=== PATIENT | male | born 1945 | race Caucasian/White ===

== ENCOUNTER 2023-11-26 12:39 | Inpatient (IN) | payer MEDICARE, OTHER, SELFPAY ==
[2023-11-26] VITALS (14 sets, daily range): BP systolic 116–159; BP diastolic 76–116; BMI 29.9
--- NOTE | 2023-11-26 10:46 | W.PN.CARDCBS ---
Today's Communication / Plan
-
LHC today MV CAD
consult CT surgery for CABG eval
trend troponin to peak
Echo
Impression / Plan
-
This is a summary, see scanned H&P
Primary care physician: Alpesh Sam DO
Primary stenotype machine operator: Parrish Diaz MD
78-year-old man with history of hypertension, hyperlipidemia, hiatal hernia, GERD, who presented to the ED with approximately 10 days of progressively worsening chest tightness.
Chest pain description was fairly atypical since it was non-exertional and worse with laying flat. However EKG showed new lateral T wave inversions compared to old prior EKG. Troponin on arrival was minimally elevated to 63, however overnight
progressively drew to 149. EKG this AM showed dynamic changes with deeper lateral T wave inversions and prolonged QTc. He is transferred today for [facility].
Impression:
unstable angina/NSTEMI
HTN
Hyperlipidemia
GERD/hiatal hernia
Cataracts
Depression
Plan:
Admit IVU post LHC with MV CAD
CT surgery consultation
serial troponin to peak
Check ECHO
continue ASA, losartan
high intensity statin
new start to metoprolol
Resume Heparin drip 4 hours post Rad band
continue to monitor on tele
Progress Note - Topology Teacher
Subjective
Date of Service: November 26, 2023
no cp, sob
Physical Exam
Physical Exam
NAD, AOX3
S1, S2, RRR
CTAB, non labored, no wheeze
SNTND Bsx4
No LE edema
[2023-11-26 12:16] LABS: ACT-LR - POC 274 Seconds (116-155)
[2023-11-26] MEDS: NSS 1000 IV (12:25)
--- NOTE | 2023-11-26 12:39 | ITS.CL.CATH ---
[facility] - Catheterization
Cardiac Catheterization
Procedure Report:
LEFT HEART CATHETERIZATION
Date of Procedure: 11/26/2023
Procedures performed:
1: Coronary angiography
2: Left ventriculography
Primary Care Physician: Dr. Alpesh Sam
Primary Revenue Collector: Dr. Parrish Diaz
INDICATION: The patient is a 78-year-old man who presents with crescendo angina and ruled in for non-ST elevation PA. Transferred for urgent cardiac catheterization. Chest pain-free since yesterday. Given aspirin and unfractionated heparin only.
ACCESS: The patient was prepped and draped in usual sterile fashion. A 6 Nepalese sheath was placed in the right radial artery using the Seldinger over the wire technique.
HEMODYNAMIC FINDINGS (mmHg):
LV(s/d,EDP): 129/6, 10
Ao(s/d,m): 129/72, 96
ANGIOGRAPHIC FINDINGS:
Single-plane Left Ventriculography in EVANS Projection: Anteroapical focal severe hypokinesis. Apical hypokinesis. Anterolateral moderate hypokinesis. Overall mild LV systolic dysfunction with an ejection fraction visually estimated at 45 to 50%.
No significant mitral regurgitation.
Coronary Angiography:
Dominance: Right
Left Main: Large caliber with diffuse moderate luminal irregularity with areas of 50% stenotic disease.
Left Anterior Descending: The left anterior descending artery is heavily calcified proximally. There is a long 80 to 90% proximal stenosis. The distal vessel fills via right to left collaterals and is a reasonable surgical target. There are 2
relatively small diagonal branches that are patent but have significant ostial disease with normal distal flow and are not surgical targets.
Left Circumflex: The left circumflex is a relatively large nondominant vessel that has a mid 95% stenosis before giving off 2 very large widely patent obtuse marginal branches with normal flow.
Right Coronary: The right coronary artery is a large dominant vessel that gives rise to a medium caliber posterior descending artery and smaller posterior left ventricular branch system. There are moderate luminal irregularities throughout the AV
groove but no evidence of focal obstructive disease with STEPHANIE-3 flow in all distal vessels.
Fluoroscopy Time (min): 4.9
Radiation Dose (mGy): 530
DAP (Gy.cm2): 33
Closure device: None. A TR band was applied for hemostasis at the right wrist.
Complications: None.
ASSESSMENT:
1: Severe obstructive two-vessel disease in the LAD and circumflex with significant left main as described above.
2: Normal left ventricular filling pressures with no significant mitral regurgitation.
3: Mild LV systolic dysfunction with LAD territory wall motion abnormality as described above.
CONCLUSIONS and RECOMMENDATIONS:
1: CT surgical evaluation for CABG.
Georgie Bermeo M.D.
Copy to: Dr. Alpesh Sam
--- NOTE | 2023-11-26 13:00 | PTCARENOTE ---
Rec'd report from Gauri in the Manager Logistic; Rec'd pt AAOx3 w/no c/o CP or SOB; Pt w/R radial band in place w/no signs or symptoms of bleeding or hematoma. Pt's VS stable w/HR in the 60's, BP 133/78, SpO2 on rm air 96%. Plan of care discussed w/pt. CT
surgeon in to see pt & ECHO being done now. Pt w/call cabello within reach & plan of care ongoing.
[2023-11-26 13:02] LABS: Troponin I 0.673 ng/ml
--- NOTE | 2023-11-26 13:43 | CONSULT.CT ---
Consultation
-
Date/Time Consultation Requested: 11/25
Date/Time Consultation Performed: 11/25
Requesting Provider: Dr Haskins for Dr Remington Bermeo
Performing Provider: Aysha Rosa for Dr John Willis
Reason for Consultation: CABG evaluation
Patient History
Physicians
Family Physician: Alpesh Sena
Outpatient Sap Bpc Developer: Remington Bermeo
Inpatient Sap Bpc Developer: Dr. Haskins
History of Present Illness
Patient is a 78-year-old male who was admitted to [facility] on 11/24 for evaluation of a 7-10-day history of chest pressure, often worse with lying flat. Patient ruled in for non-STEMI with proBNP of 1304 and troponin of 63. Transferred to
[facility] on 11/26/2023 for cardiac catheterization which reported 2 vessel coronary disease. Patient is currently pain free. He spoke with Dr. Willis and is agreeable to proceed with coronary bypass
left Heart Cath (11/26/23 R radial) by Dr Bermeo:
Left Main: Large caliber with diffuse moderate luminal irregularity with areas of 50% stenotic disease.
Left Anterior Descending: The left anterior descending artery is heavily calcified proximally. There is a long 80 to 90% proximal stenosis. The distal vessel fills via right to left collaterals and is a reasonable surgical target. There are 2
relatively small diagonal branches that are patent but have significant ostial disease with normal distal flow and are not surgical targets.
Left Circumflex: The left circumflex is a relatively large nondominant vessel that has a mid 95% stenosis before giving off 2 very large widely patent obtuse marginal branches with normal flow.
Right Coronary: The right coronary artery is a large dominant vessel that gives rise to a medium caliber posterior descending artery and smaller posterior left ventricular branch system. There are moderate luminal irregularities throughout the AV
groove but no evidence of focal obstructive disease with STEPHANIE-3 flow in all distal vessels.
Past Medical History
Past Medical History: GERD (Baldwin's), HTN, Hypercholesterolemia and Psychiatric (depression)
Past Surgical History
Past Surgical History: Tonsilectomy and Other (B/L cataract extraction; plating of left wrist fracture)
Family History
Mother: N/A
Father: N/A
Social History
Alcohol: Daily (1-2 drinks daily)
Drug: None
Tobacco: Former Smoker (quit 1976)
Personal:
Living: With Spouse (in independent living senior community)
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
Allergies
Allergy/AdvReac Type Severity Reaction Status Date / Time
No Known Allergies Allergy Unverified 11/26/23 10:57
Home Medications
�Medication �Instructions �Recorded �Confirmed �Type
atorvastatin 40 mg tablet 40 mg PO DAILY 11/26/23 11/26/23 History
calcium carbonate 200 mg PO BID PRN as needed 11/26/23 11/26/23 History
escitalopram oxalate 10 mg tablet 10 mg PO DAILY 11/26/23 11/26/23 History
ferrous sulfate 325 mg (65 mg 325 mg PO DAILY 11/26/23 11/26/23 History
iron) tablet
lactase 3,000 unit tablet 3,000 unit PO ONCE PRN as needed 11/26/23 11/26/23 History
losartan 100 mg tablet 100 mg PO DAILY 11/26/23 11/26/23 History
multivitamin 1 tab PO DAILY 11/26/23 11/26/23 History
pantoprazole 40 mg tablet,delayed 40 mg PO DAILY 11/26/23 11/26/23 History
release
Review of Systems
-
History Source: Patient
General: Reports No Symptoms
HEENT: Reports No Symptoms
Respiratory: Reports No Symptoms
Cardiac: Reports No Symptoms (resolved on admission to [facility]) and Chest Pain
Abdomen/GI: Reports No Symptoms
: Reports No Symptoms
Musculoskeletal: Reports No Symptoms
Skin: Reports No Symptoms
Neurological: Reports No Symptoms
Vascular: Reports No Symptoms
Physical Exam
Vital Signs
Temp 97.9 F 11/26/23 13:02
Temp route: Oral 11/26/23 13:02
Pulse 64 11/26/23 13:00
Resp Rate 16 11/26/23 13:09
Blood pressure 133/78 11/26/23 13:00
Blood pressure extremity used: Left upper arm 11/26/23 13:02
Position: Sitting 11/26/23 13:02
MAP (cuff-Anirudh Monitor) 96 11/26/23 13:00
SaO2 96 11/26/23 13:02
Oxygen Mode of Delivery Room air 11/26/23 13:02
Can the patient verbally communicate their pain? Yes 11/26/23 10:50
Actual Weight 83.915 kg 11/26/23 11:06
Body Mass Index (BMI) 29.9 11/26/23 11:06
Labs
Troponin I 0.673 ng/ml H* 11/26/23 12:13
Exam
General: Well Developed, Well Nourished and No Apparent Distress
HEENT: Normocephalic, Anicteric, Moist Mucous Membranes and PERRLA
Neck: Trachea Midline
Respiratory: Clear
Cardiac: S1/S2 and Regular Rhythm
GI: Soft, Non Tender, Non Distended and Normal Bowel Sounds
Rectal: Deferred by Provider
Skin: Warm and Dry
Neuro: AO x 3, No Motor Deficits and Nonfocal/Grossly Intact
Extremities: Pulses (+2/4 DP pulses intact)
Lymph: No Lymphadenopathy
Psych: Calm
Assessment / Plan
-
78 year old male with two vessel coronary disease
- Dr Willis met with patient to discuss procedure, risk/benefit, and expected recovery trajectory
- TTE result pending
- pre-op diagnostics ordered
- plan for CABG with KATHLEEN/DALE on 11/27
- consent signed and in chart
- will need anesthesia pre-op consult
Data Reviewed
-
EKG: Report Reviewed by me and Discussed with Physician
Ip Counsel: Report Reviewed by me and Discussed with Physician
Echo: Report Reviewed by me and Discussed with Physician
Labs: Labs Reviewed by me and Discussed with Physician
Old Records: Reviewed
--- NOTE | 2023-11-26 15:13 | CM ---
Reviewed chart. Met with Mr. Juarez to review discharge plans. He states prior to admission he resides with his spouse in a house at [facility]. He states he has been there for a year and a half. He states his house is a
one level home with one small step to enter. He states prior to admission he was independent with ambulation and adls. He states he does not have any DME in the home. He states he has a prescription plan with [facility] and uses [facility]
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 He states his spouse will be home to assist in his care if needed. Medical work-up in progress. The discharge plan is to return home with his spouse and a home visit by the Cardiothoracic Transitional
Care Nurse when medically stable.
We reviewed pre-op and post-op routines. We briefly reviewed the shower instructions. We reviewed restrictions including sternal precautions and driving restrictions. Also discussed a home visit by the Cardiothoracic Transitional Care Nurse. He
is agreeable to a home visit. Gave him the Cardiothoracic Surgery Educational Booklet. The plan is for CABG on
[2023-11-26] MEDS: HEPARIN 25000 UNITS/250 ML IV (16:57)
[2023-11-26] MEDS: FLUSH (NSS) 1 FLUSH IV (17:02)
[2023-11-26 17:08] LABS: Hematocrit 45.1 % (39.0-52.0); Hemoglobin 15.9 g/dL (13.0-18.0); Mean Corp Hgb Conc. 35.3 g/dL (33.0-37.0); Mean Corpuscular Hgb 30.2 pg (27.0-31.0); Mean Corpuscular Volume 85.7 fL (80.0-94.0); Mean Platelet Volume 9.1 fL (7.4-10.4); Platelet Count 221 10^3/uL (130-400); Red Blood Cell Count 5.26 10^6/uL (4.70-6.10); White Blood Cell Count 7.3 10^3/uL (4.8-10.8)
[2023-11-26 17:20] LABS: APTT 32.6 Sec (23.4-35.0)
[2023-11-26] MEDS: LIPITOR PO (18:42)
[2023-11-26] MEDS: LOPRESSOR 25 MG PO (19:44)
[2023-11-26 22:48] LABS: APTT 67.2 Sec (23.4-35.0)
[2023-11-26 23:05] LABS: Troponin I 0.705 ng/ml
[2023-11-27 04:48] VITALS: BP 120/74
[2023-11-27 05:09] LABS: Hematocrit 44.5 % (39.0-52.0); Hemoglobin 15.9 g/dL (13.0-18.0); Mean Corp Hgb Conc. 35.7 g/dL (33.0-37.0); Mean Corpuscular Hgb 30.5 pg (27.0-31.0); Mean Corpuscular Volume 85.4 fL (80.0-94.0); Platelet Count 214 10^3/uL (130-400); Red Blood Cell Count 5.21 10^6/uL (4.70-6.10); White Blood Cell Count 8.4 10^3/uL (4.8-10.8)
[2023-11-27 05:18] LABS: INR 1.07; PT 13.8 Sec (11.4-14.6)
[2023-11-27 05:46] LABS: ALT (SGPT) 24 U/L (0-50); AST (SGOT) 31 U/L (17-59); Albumin 4.2 g/dl (3.5-5.0); Alkaline Phosphatase 50 U/L (38-126); Blood Urea Nitrogen 22 mg/dl (9-20); Calcium 9.3 mg/dl (8.4-10.2); Carbon Dioxide 25 mmol/L (22-30); Chloride 105 mmol/L (98-107); Direct Bilirubin 0.1 mg/dl (0.0-0.4); Estimated Creatinine Clearance 57 ml/min; Glucose 98 mg/dl (70-99); HDL Cholesterol 49 mg/dl; LDL Cholesterol, Calculated 84 mg/dl; Potassium 4.2 mmol/L (3.5-5.1); Sodium 138 mmol/L (135-145); Total Bilirubin 0.6 mg/dl (0.2-1.3); Total Cholesterol 157 mg/dl (50-199); Total Protein 6.8 g/dl (6.3-8.2); Triglyceride 121 mg/dl (10-149); Very Low Density Lipoprotein 24 mg/dl (0-30); eGFR > 60.00
[2023-11-27 05:50] LABS: Troponin I 0.709 ng/ml
--- NOTE | 2023-11-27 05:54 | PTCARENOTE ---
Addendum entered by Omega Moreno RN 11/27/23 05:59:
Clarification HR was in mid 40's to 50's during periods of bradycardic periods.
Original Note:
Rec'd pt at change of shift on TELE monitor in NRS with bradicardic periods and VSS. Post heart CATH today with radial site intact and dry with transparent dressing and no discharge noted. Pt agreed to report any new pain or discharge at site. RN
educated pt on procedure preperation and pt verbalized understanding of preparation. Pt resting with call cabello in reach.
[2023-11-27 07:17] VITALS: BP 118/61
--- NOTE | 2023-11-27 07:49 | W.PN.CARDCBS ---
Addendum entered and electronically signed by Oscar Tomlin MD 11/27/23 15:15:
I saw and examined the patient.
The Bench Hand's note was reviewed and I agree with the note.
Comment: Briefly, 78-year-old man past medical history of hypertension and hyperlipidemia who presented to [facility] with approximately 1 week of chest discomfort
Twelve-lead ECG with nonspecific T wave changes
High-sensitivity troponin was minimally elevated
He was transferred to [facility] for left heart catheterization 11/26/2023 and found to have obstructive coronary disease involving the left main, LAD and left circumflex
Appreciate CT surgery input, tentative plan for CABG
For now continue medical management with aspirin, statin, beta-narayan and heparin drip
We will continue to follow
Original Note:
Today's Communication / Plan
-
CP free on IV heparin, asa, statin, lopressor
CABG workup underway, tentatively planned for 11/27
Impression / Plan
-
This is a summary, see scanned H&P
Primary care physician: Alpesh Sam DO
Primary web assistant: Parrish Diaz MD of [facility]
78-year-old man with history of hypertension, hyperlipidemia, hiatal hernia, GERD, who presented to the ED with approximately 10 days of progressively worsening chest tightness.
Chest pain description was fairly atypical since it was non-exertional and worse with laying flat. However EKG showed new lateral T wave inversions compared to old prior EKG. Troponin on arrival was minimally elevated to 63, however overnight
progressively drew to 149. EKG this AM showed dynamic changes with deeper lateral T wave inversions and prolonged QTc. He is transferred today for [facility].
Impression:
unstable angina/NSTEMI, peak trop 0.7
s/p Cath with severe two-vessel CAD in LAD and circumflex with significant left main 11/26/23
HTN
Hyperlipidemia
GERD/hiatal hernia
Cataracts
Depression
ECHO 11/26/23: EF 45 to 50%, mild concentric LVH, hypokinesis of mid to apical anterolateral, inferolateral, inferoseptal, anteroseptal, apical, mitral sclerosis, mild MR, PAP 35 to 40 mmHg
Plan:
-Presented to [facility] for NSTEMI. Transferred for cardiac catheterization 11/25 which revealed severe two-vessel CAD in LAD and circumflex with significant left main
-CT surgery evaluation underway. Tentatively scheduled for bypass 11/27
-trops relatively flat, follow
-echo with results as above
-remains CP free on IV heparin, continue
-continue ASA, statin, lopressor. OP losartan on hold with upcoming surgery
-R wrist site c/d/i
-d/w nursing
Progress Note - Dissolver Operator
Subjective
Date of Service: November 27, 2023
No chest pain overnight.
Objective
Labs:
11/27/23 05:00
11/27/23 05:00
Labs
Hgb 15.9 g/dL (13.0-18.0) 11/27/23 05:00
Hct 44.5 % (39.0-52.0) 11/27/23 05:00
Plt Count 214 10^3/uL (130-400) 11/27/23 05:00
PT 13.8 Sec (11.4-14.6) 11/27/23 05:00
INR 1.07 11/27/23 05:00
APTT 130.0 Sec (23.4-35.0) H 11/27/23 05:00
Sodium 138 mmol/L (135-145) 11/27/23 05:00
Potassium 4.2 mmol/L (3.5-5.1) 11/27/23 05:00
BUN 22 mg/dl (9-20) H 11/27/23 05:00
Creatinine 1.1 mg/dL (0.7-1.3) 11/27/23 05:00
Glucose 98 mg/dl (70-99) 11/27/23 05:00
Troponins
11/26/23 11/26/23 11/27/23
12:13 22:29 05:00
Troponin I 0.673 H* 0.705 H* 0.709 H*
Vital Signs and I&O:
Vital Signs
Temp Pulse Resp BP Pulse Ox
98.3 F 49 16 120/74 95
11/27/23 07:16 11/27/23 05:00 11/27/23 07:16 11/27/23 04:48 11/27/23 07:16
Vital Signs
Temp Pulse Resp BP Pulse Ox
98.3 F 49 16 120/74 95
11/27/23 07:16 11/27/23 05:00 11/27/23 07:16 11/27/23 04:48 11/27/23 07:16
Intake & Output
11/24/23 11/25/23 11/26/23 11/27/23
07:59 07:59 07:59 07:59
Intake Total 1346 / 1346
Balance 1346 / 1346
Physical Exam
Physical Exam
GEN: No distress, awake, alert, oriented x3
HEENT: supple, anicteric, mmm, eomi
LUNGS: CTA B/L, no wheezes
CV: Reg, S1/S2, no murmur
EXT: No cyanosis, clubbing, edema
NEURO: Gross non-focal
SKIN: Warm, pink, dry. No rash
[2023-11-27] MEDS: LEXAPRO 10 MG PO (08:15)
[2023-11-27] MEDS: LOPRESSOR 25 MG PO (08:15)
[2023-11-27] MEDS: PROTONIX 40 MG PO (08:16)
--- NOTE | 2023-11-27 09:48 | PTCARENOTE ---
Received patient this morning oob in his room with IV heparin infusing at 1000 units/hr. Denies any chest pain or sob, awaiting surgery planned for tomorrow. Sent for his CXR and ultrasound of his carotids.
--- NOTE | 2023-11-27 10:50 | W.PN.UPDATE ---
Update Note
Progress Note Update
STS RISK SCORE
Procedure Type:�Isolated CABG
PERIOPERATIVE OUTCOME ESTIMATE %
Operative Mortality 1.2%
Morbidity & Mortality 5.32%
Stroke 0.84%
Renal Failure 0.672%
Reoperation 2.01%
Prolonged Ventilation 2.77%
Deep Sternal Wound Infection 0.094%
Long Hospital Stay (>14 days) 2.43%
Short Hospital Stay (<6 days)* 59.1%
Clinical Summary
Planned Surgery: Isolated CABG, Urgent, First cardiovascular surgery
Demographics: 78 year old, male, 83.9kg, 168cm, BMI: 29.7 kg/m�
Lab Values: Creatinine: 1.1 mg/dL, Hematocrit: 44.5%, WBC Count: 8.4 10�/�L, Platelet Count: 165223 cells/�L
Substance Abuse: Former smoker, Alcohol use: 2-7 drinks/week
Risk Factors / Comorbidities: Hypertension, Family Hx of CAD
Cardiac Status: NYHA Class II, Ejection Fraction = 47%
Coronary Artery Disease: 2 vessels diseased, Left Main Stenosis >=50%, Proximal LAD Stenosis >=70%, Non-ST Elevation TX, TX: 1 to 7 Days
Valve Disease: Mild MR
[2023-11-27 10:53] LABS: Glycohemoglobin (HgbA1c) 5.6 % (4.0-5.6)
[2023-11-27 12:09] VITALS: BP 120/85
--- NOTE | 2023-11-27 12:12 | CM ---
Reviewed chart. Met with Mr. Juarez. He states he is feeling well and the plan is for surgery tomorrow. Prior to admission he resides with his spouse in a one story home with one step to enter. He resides at [facility]. He
has been there for a year and half. Prior to admission he was independent with ambulation and adls. He does not have any DME in the home. He has a prescription plan with [facility] and uses [facility] and mail order. His spouse will be
home to assist in his care if needed. Medical work-up in progress. The discharge plan is to return home with his spouse and a home visit by the Cardiothoracic Transitional Care Nurse when medically stable.
[2023-11-27 13:13] LABS: Troponin I 0.454 ng/ml
[2023-11-27] MEDS: LIPITOR 40 MG PO (17:39)
[2023-11-27] MEDS: HEPARIN 25000 UNITS/250 ML IV (17:41)
[2023-11-27 18:52] LABS: APTT 66.6 Sec (23.4-35.0)
[2023-11-27 18:57] VITALS: BP 135/73
[2023-11-27] MEDS: LOPRESSOR 12.5 MG PO (19:42)
--- NOTE | 2023-11-27 21:55 | PTCARENOTE ---
Assumed care of patient at change of shift. Tele monitor shows Sinus Vlad-NSR, HR in the 50-60's. Denies any pain or discomfort. Right radial dressing C/D/I and slightly ecchymotic. IV heparin gtt infusing at 11ml/hr. Next ptt due at 01:00. 1st
round of prep completed. Patient aware to remain NPO at midnight for CVOR procedure in AM. Pt oriented x4 and can make needs known, call cabello within reach.
[2023-11-27 22:27] VITALS: BP 118/80
[2023-11-28] VITALS (16 sets, daily range): BP systolic 92–148; BP diastolic 64–94; BMI 29.0
[2023-11-28 01:34] LABS: APTT 95.1 Sec (23.4-35.0)
[2023-11-28 01:51] LABS: ALT (SGPT) 23 U/L (0-50); AST (SGOT) 30 U/L (17-59); Alkaline Phosphatase 48 U/L (38-126); Blood Urea Nitrogen 27 mg/dl (9-20); Calcium 9.4 mg/dl (8.4-10.2); Carbon Dioxide 26 mmol/L (22-30); Chloride 105 mmol/L (98-107); Estimated Creatinine Clearance 52 ml/min; Glucose 102 mg/dl (70-99); Potassium 4.2 mmol/L (3.5-5.1); Sodium 136 mmol/L (135-145); Total Bilirubin 0.5 mg/dl (0.2-1.3); Total Protein 6.5 g/dl (6.3-8.2); eGFR > 60.00
[2023-11-28 02:02] LABS: Hemoglobin 14.7 g/dL (13.0-18.0); Mean Corp Hgb Conc. 34.2 g/dL (33.0-37.0); Mean Corpuscular Hgb 30.4 pg (27.0-31.0); Mean Corpuscular Volume 88.8 fL (80.0-94.0); Mean Platelet Volume 9.5 fL (7.4-10.4); Platelet Count 200 10^3/uL (130-400); Red Blood Cell Count 4.84 10^6/uL (4.70-6.10); Red Cell Dist. Width 11.9 % (11.5-14.5); White Blood Cell Count 8.9 10^3/uL (4.8-10.8)
--- NOTE | 2023-11-28 06:06 | W.PN.UPDATE ---
Update Note
Progress Note Update
-preop BB is contraindicated d/t bradycardia (hr 40s).
[2023-11-28] MEDS: BACTROBAN 2% OINTMENT 1 APPLIC NASAL ×2 (06:09→20:12)
[2023-11-28] MEDS: PROTONIX 40 MG PO (06:09)
[2023-11-28] MEDS: MAGNESIUM OXIDE 500 MG PO (06:09)
--- NOTE | 2023-11-28 07:01 | W.CVOR.SURPR ---
CVOR Surgeon Immed Pre Op
-
I have examined this patient prior to performance of the scheduled procedure.
The patient's condition is unchanged from the time of the dictated/written History and
Physical and the patient is able to undergo the scheduled procedure.
[2023-11-28 07:51] LABS: Urine Albumin Negative (Neg - Trace); Urine Bilirubin Negative (Negative); Urine Character Clear (Clear); Urine Color Yellow; Urine Glucose Negative (Negative); Urine Ketone Negative (Negative); Urine Leukocyte Negative (Negative); Urine Nitrite Negative (Negative); Urine Occult Blood 4+ (Negative); Urine Specific Gravity 1.015 (<1.030); Urine Urobilinogen Negative (Neg - 1+)
[2023-11-28 07:52] LABS: ACT+ - POC 137 Seconds (82-134)
[2023-11-28 08:12] LABS: Urine Mucus Few
[2023-11-28 08:13] LABS: Urine Amorphous Seen; Urine Squamous Cell 16-20 /LPF (Few)
[2023-11-28 08:15] LABS: Urine White Cell 0-2 /HPF (0-5)
[2023-11-28 08:48] LABS: B.E. - POC -1.3 mmol/L; Glucose - POC 105 mg/dl (65-99); HCO3 - POC 25 mmol/L (21-29); Hematocrit - POC 40 % PCV (42-52); Hemodilution- POC No; Hemoglobin Calculated - POC 13.7; Ionized Calcium - POC 1.24 mmol/L (1.12-1.27); O2 Saturation %Calculated-POC 97.1 5 (92-96); PCO2 - POC 47 mmHg (35-45); PO2 - POC 98 mmHg (80-100); POC Comment PRE OPCAB; Potassium - POC 4.1 mmol/L (3.6-5.0); Sodium - POC 141 mmol/L (135-145); pH - POC 7.34 (7.35-7.45)
[2023-11-28 08:59] LABS: ACT+ - POC 624 Seconds (82-134)
[2023-11-28 10:06] LABS: B.E. - POC -2.1 mmol/L; Glucose - POC 118 mg/dl (65-99); HCO3 - POC 24 mmol/L (21-29); Hematocrit - POC 38 % PCV (42-52); Hemodilution- POC Yes; Hemoglobin Calculated - POC 12.9; Ionized Calcium - POC 1.18 mmol/L (1.12-1.27); O2 Saturation %Calculated-POC 98.3 5 (92-96); PCO2 - POC 43 mmHg (35-45); PO2 - POC 115 mmHg (80-100); POC Comment OPCAB; Potassium - POC 4.3 mmol/L (3.6-5.0); Sodium - POC 141 mmol/L (135-145); pH - POC 7.35 (7.35-7.45)
[2023-11-28 10:11] LABS: ACT+ - POC 98 Seconds (82-134)
[2023-11-28 10:11] LABS: B.E. - POC -2.7 mmol/L; Glucose - POC 124 mg/dl (65-99); HCO3 - POC 23 mmol/L (21-29); Hematocrit - POC 34 % PCV (42-52); Hemodilution- POC Yes; Hemoglobin Calculated - POC 11.7; Ionized Calcium - POC 1.47 mmol/L (1.12-1.27); O2 Saturation %Calculated-POC 93.7 5 (92-96); PCO2 - POC 43 mmHg (35-45); PO2 - POC 74 mmHg (80-100); POC Comment OPCAB; Potassium - POC 4.2 mmol/L (3.6-5.0); Sodium - POC 141 mmol/L (135-145); pH - POC 7.34 (7.35-7.45)
--- NOTE | 2023-11-28 10:29 | W.PN.CT.SURG ---
CT Surgery Operative Note
-
Pre-op Diagnosis: nstemi
CAD
Post-op Diagnosis: Same
Procedure: Cabg x 2
Darling- lad
Marivel- om
off pump
TTFM
RSF
Primary Surgeon: Alba
Assisting Surgeons: Lauro, assist at the chest
Specimen: None
Cultures: None
Complications / Blood Loss: None
Findings: Sabino with preserved EF pre and post revasc, no NWMA
Good conduits
Good targets
Excellent flows and low PI for both grafts
[2023-11-28] MEDS: NSS 500 IV (10:56)
[2023-11-28] MEDS: LR 1000 IV (10:56)
[2023-11-28 10:57] LABS: Glucose - Point of Care 124 mg/dl (70-99)
[2023-11-28 11:05] LABS: Hematocrit 36.5 % (39.0-52.0); Hemoglobin 12.6 g/dL (13.0-18.0); Platelet Count 174 10^3/uL (130-400)
--- NOTE | 2023-11-28 11:08 | W.PN.UPDATE ---
Update Note
Progress Note Update
78-year-old male initially admitted to [facility] on 11/24 for evaluation of a 7-10-day history of chest pressure, often worse with lying flat. Patient ruled in for non-STEMI and transferred to [facility] on 11/26/2023 for cardiac
catheterization which reported 2 vessel coronary disease.
IV fluids: 1250
U.O.:� 125
Blood:� none
Wires:� none
Gtts: Precedex, Insulin
�
NEURO: sedated on Precedex, pupils +2mm B/L
RESP: #8OT 23> 500/60%/14/5. Lungs clear B/L. 2 mediastinal (65cc on arrival) and R/L pleural (55cc on arrival) chest tubes to -20cm suction. Sanguineous drainage
CV: RRR +S1, S2, no S3, no�rub, no murmur. Dermabond to median sternotomy. RIJ w/slick.
ABD: round, soft, no BS
EXT: no edema, +2/4 DP pulses B/L, no femoral bruit, radial A-line intact
: Avitia with clear yellow urine
�
A/P: POD #0 s/p OPCAB x 2 KATHLEEN-LAD; DALE (Y-off KATHLEEN)-OM
EMILE: report pending
- wean and extubate
# CAD
- will require ASA/Plavix, statin, beta-narayan
�
# acute surgical blood loss anemia-expected
- trend CBC
# Depression
- resume escitalopram 10mg daily
�
# GERD/Baldwin's
- continue Protonix
[2023-11-28 11:09] LABS: HCO3 22.7 mmol/L (21-28); Ionized Calcium 1.14 mMOL/L (1.15-1.33); O2 Saturation % 96.4 % (94-98); PCO2 42 mmHg (35-48); PO2 73 mmHg (83-108); Potassium 4.1 mMOL/L (3.5-5.1); Sodium 136 mMOL/L (136-145); pH 7.34 (7.35-7.45)
[2023-11-28 11:15] LABS: O2 Therapy VENT
--- NOTE | 2023-11-28 11:15 | PTCARENOTE ---
Pt received from CVOR at 1050; Sedated and intubated; SR with SB rhythm on monitor; VSS; DP and radial pulses present; Lungs diminished at bases; ETT size 8 positioned and secured at 24 cm right lip; Ventilator settings SIMV 14/500/5/5 FiO2 60%;
CTx3 to -20 cm wall suction draining bloody drainage - no air leak, tidaling, or crepitus noted; Hypoactive BS; Avitia catheter in place draining clear, yellow urine; Surgical site CDI; Left A-line and [place] present in right Cordis - all lines
leveled and zeroed; PIVx1; Levo/insulin/precedex infusing - see nursing flowsheets for further details; CPOT 0; RASS -5; See nursing documentation for further details.
[2023-11-28 11:16] LABS: INR 1.21; PT 15.4 Sec (11.4-14.6)
[2023-11-28 11:17] LABS: APTT 30.5 Sec (23.4-35.0)
[2023-11-28 11:19] LABS: Blood Urea Nitrogen 22 mg/dl (9-20); Estimated Creatinine Clearance 51 ml/min; Glucose 125 mg/dl (70-99); Magnesium 2.6 mg/dl (1.6-2.3)
--- NOTE | 2023-11-28 11:21 | W.PN.CARDCBS ---
Addendum entered and electronically signed by Bryce Smart MD 11/28/23 15:50:
I saw and examined the patient.
The Pin Ticket Machine Operator's note was reviewed and I agree with the note.
Comment:
GEN: No distress, intubaed
HEENT: supple, anicteric, mmm, Et tube
LUNGS: CTA, no wheezes/rales
CV: Reg, S1/S2, no rub/gallop
ABD: soft, BS+, NT/ND
EXT: No edema
NEURO: Gross non-focal
SKIN: No rash
Plan:
Overall doing well status post CABG x 2 off-pump. Off drips.
Wean to extubate. EKG with anterolateral T wave inversions. Would repeat in AM.
Continue amiodarone and metoprolol.
Original Note:
Today's Communication / Plan
-
continue post op care
follow EKG
Impression / Plan
-
This is a summary, see scanned H&P
Primary care physician: Alpesh Sam DO
Primary vp design: Parrish Diaz MD of [facility]
Impression:
unstable angina/NSTEMI, peak trop 0.7
s/p Cath with severe two-vessel CAD in LAD and circumflex with significant left main 11/26/23
s/p CABG x2 KATHLEEN to LAD, DALE to OM, off pump 11/28/23
HTN
Hyperlipidemia
GERD/hiatal hernia
Cataracts
Depression
ECHO 11/26/23: EF 45 to 50%, mild concentric LVH, hypokinesis of mid to apical anterolateral, inferolateral, inferoseptal, anteroseptal, apical, mitral sclerosis, mild MR, PAP 35 to 40 mmHg
Plan:
-Presented to [facility] for NSTEMI. Transferred for cardiac catheterization 11/25 which revealed severe two-vessel CAD in LAD and circumflex with significant left main
-s/p CABG x2 KATHLEEN to LAD, DALE to OM, off pump 11/28/23
-intubated, sedated. on princess hugger
-off pressors
-EMILE with preserved EF pre and post revascularization
-hgb 12.6, follow post op
-EKG SR with lateral ST inversion/depression. awaiting prior from [facility] for comparison. will follow
-asa, plavix when ok per surgery given NSTEMI presentation
-continue post op care
-d/w nursing
PREADMIT DATA:
78-year-old man with history of hypertension, hyperlipidemia, hiatal hernia, GERD, who presented to the ED with approximately 10 days of progressively worsening chest tightness.
Chest pain description was fairly atypical since it was non-exertional and worse with laying flat. However EKG showed new lateral T wave inversions compared to old prior EKG. Troponin on arrival was minimally elevated to 63, however overnight
progressively drew to 149. EKG this AM showed dynamic changes with deeper lateral T wave inversions and prolonged QTc. He is transferred today for [facility].
Progress Note - Financial Recruiter
Subjective
Date of Service: November 28, 2023
intubated, sedated
Objective
Labs:
11/28/23 10:55
Labs
Hgb 12.6 g/dL (13.0-18.0) L 11/28/23 10:55
Hct 36.5 % (39.0-52.0) L 11/28/23 10:55
Plt Count 174 10^3/uL (130-400) 11/28/23 10:55
PT 13.8 Sec (11.4-14.6) 11/27/23 05:00
INR 1.07 11/27/23 05:00
APTT Cancelled 11/28/23 07:09
Sodium 136 mmol/L (135-145) 11/28/23 01:09
Potassium 4.2 mmol/L (3.5-5.1) 11/28/23 01:09
BUN 22 mg/dl (9-20) H 11/28/23 10:55
Creatinine 1.1 mg/dL (0.7-1.3) 11/28/23 10:55
Glucose 125 mg/dl (70-99) H 11/28/23 10:55
Troponins
11/26/23 11/26/23 11/27/23
12:13 22:29 05:00
Troponin I 0.673 H* 0.705 H* 0.709 H*
11/27/23
12:16
Troponin I 0.454 H* D
Vital Signs and I&O:
Vital Signs
Temp Pulse Resp BP Pulse Ox
96.2 F L 57 14 126/80 94
11/28/23 11:00 11/28/23 11:00 11/28/23 11:00 11/28/23 05:08 11/28/23 11:00
Vital Signs
Temp Pulse Resp BP Pulse Ox
96.2 F L 57 14 126/80 94
11/28/23 11:00 11/28/23 11:00 11/28/23 11:00 11/28/23 05:08 11/28/23 11:00
Intake & Output
11/26/23 11/27/23 11/28/23 11/29/23
07:59 07:59 07:59 07:59
Intake Total 1346 / 1346 360 / 360 35.1 / 35.1
Output Total 130 / 130
Balance 1346 / 1346 360 / 360 -94.9 / -94.9
Physical Exam
Physical Exam
GEN: No distress, intubated, sedated. on princess hugger
HEENT: supple, mmm
LUNGS: CTA B/L, no wheezes/rales
CV: Reg, S1/S2, no murmur, + rub
EXT: No cyanosis, clubbing, edema
NEURO: sedated
SKIN: Warm, pink, dry. No rash. Sternotomy incision c/d/i
[2023-11-28] MEDS: ANCEF 10 IV ×2 (11:38)
[2023-11-28] MEDS: PROTONIX PO (11:39)
[2023-11-28] MEDS: LOPRESSOR PO (11:39)
[2023-11-28] MEDS: NEURONTIN PO ×2 (11:39→16:05)
[2023-11-28] MEDS: FEOSOL PO (11:39)
[2023-11-28] MEDS: LEXAPRO PO (11:39)
--- NOTE | 2023-11-28 11:55 | CON.INTV ---
Consultation
Consultation Request
Date/Time Consultation Requested: 11/28/23
Date/Time Consultation Performed: 11/28/23
Performing Provider: Jim
Reason for Consultation: ICU
Medical History
-
History of Present Illness:
Patient is a 78-year-old man with previous history of hypertension, hyperlipidemia presenting to the ER with approximately 10 days of progressively worsening chest pain, nonexertional with associated orthopnea. EKG demonstrating new lateral T wave
inversions compared to old. Troponin on arrival elevated demonstrating NSTEMI. Underwent cardiac catheterization 11/26/2023 showing severe two-vessel disease in LAD and circumflex. CT surgery was consulted for evaluation, underwent CABG x 2
11/28/2023 and postoperative transferred to CVICU for further management.
.
Past Medical History
Past Medical History: Other (see list below)
Social History
Tobacco: Former Smoker
Alcohol: None
Drug: None
Family History
Family History: Reviewed & Not Pertinent
Allergies / Home Medications
Allergies
Allergy/AdvReac Type Severity Reaction Status Date / Time
No Known Allergies Allergy Unverified 11/26/23 10:57
Home Medications
�Medication �Instructions �Recorded �Confirmed �Last Taken �Type
atorvastatin 40 mg tablet 40 mg PO DAILY 11/26/23 11/26/23 11/25/23 History
calcium carbonate 200 mg PO BID PRN as needed 11/26/23 11/26/23 Unknown History
escitalopram oxalate 10 mg tablet 10 mg PO DAILY 11/26/23 11/26/23 11/26/23 07:00 History
ferrous sulfate 325 mg (65 mg 325 mg PO DAILY 11/26/23 11/26/23 Unknown History
iron) tablet
lactase 3,000 unit tablet 3,000 unit PO ONCE PRN as needed 11/26/23 11/26/23 Unknown History
losartan 100 mg tablet 100 mg PO DAILY 11/26/23 11/26/23 11/26/23 History
multivitamin 1 tab PO DAILY 11/26/23 11/26/23 11/26/23 History
pantoprazole 40 mg tablet,delayed 40 mg PO DAILY 11/26/23 11/26/23 11/26/23 History
release
Review of Systems
-
Unable to Obtain full review of systems at this time due to: Patient Intubation
Vitals / Labs / Diagnostic Testing
Vital Signs
Temp Pulse Resp BP Pulse Ox
96.2 F L 57 14 126/80 94
11/28/23 11:00 11/28/23 11:00 11/28/23 11:00 11/28/23 05:08 11/28/23 11:26
Lab Data
11/28/23 10:55
Laboratory Results
11/27/23 11/27/23 11/28/23
12:16 18:26 01:09
PT
INR
APTT 84.0 H 66.6 H 95.1 H
pH
pCO2
pO2
HCO3
O2 Delivery Level
11/28/23 11/28/23
07:09 10:55
PT 15.4 H
INR 1.21
APTT Cancelled 30.5
pH 7.34 L
pCO2 42
pO2 73 L
HCO3 22.7
O2 Delivery Level Vent
Microbiology
11/26/23 22:29 Nose MRSA Screen - Final
No Methicillin Resistant Staphylococcus aureus isolated.
Diagnostic Testing:
Physical Exam
-
HEENT: Normocephalic, Anicteric and Moist Mucous Membranes
Cardiovascular: S1/S2 and Regular Rhythm
Respiratory: Clear, Non-Labored Respirations and Other (ETT/intubated)
GI: Soft, Non Distended and Non Tender
Neurology: Awake, Alert, No Motor Deficits and Other (can nod head, on vent)
Skin: Warm, Dry and Good Color
General: Comfortable and Other (NAD)
Assessment
-
Patient is a 78-year-old man with previous history of hypertension, hyperlipidemia presenting to the ER with approximately 10 days of progressively worsening chest pain, nonexertional with associated orthopnea. EKG demonstrating new lateral T wave
inversions compared to old. Troponin on arrival elevated demonstrating NSTEMI. Underwent cardiac catheterization 11/26/2023 showing severe two-vessel disease in LAD and circumflex. CT surgery was consulted for evaluation, underwent CABG x 2
11/28/2023 and postoperative transferred to CVICU for further management.
Multivessel CAD status post CABG x 2 11/28/2023
Perioperative mechanical ventilation
NSTEMI
Chest pain with EKG changes, elevated troponins
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
Hypertension
Hyperlipidemia
GERD/hiatal hernia
Cataracts
Depression
Former smoker, quit in his 30s
Plan
S/p CAB POD #0
Titrate off pressors per protocol
ECHO reviewed with normal function
PA catheter readings reviewed
Management of chest tubes per primary service
Intubated/sedated, initiate SAT when able
Pain control
RASS goal of 0 to -1
Intubated for procedure, SBT trial when patient able to spontaneously breath
Current vent settings: SIMV 600/16/40/5
ABG(s) reviewed/adequate
CXR with no obvious opacities/infiltrates, low lung volumes, ETT in good position, lines/tubes in place
Extubate per protocol
Maintain supplement oxygen as needed
No prior history of pulmonary disease, former smoker but quit many years ago
No Prior PFTs for review
Can add nebulizers if needed
Aspiration precautions
Encouraged incentive spirometry, OOB/ambulation/early mobility
Advance diet as tolerated following extubation
GI prophylaxis if indicated for mechanical ventilation >48 hours
Monitor critical I/O's
Avitia/chest tube output
Hb/platelets postoperatively stable
Trend CBC for now
Can transfuse if indicated for Hb <7, plt <50 in surgical patients
DVT prophylaxis including SCDs
Insulin protocol initiated and ongoing
Transition to SQ/off as indicated per team
We will follow
Diagnostic Data
Chest X-Ray: 11/28/23- Low lung volumes. No active pulmonary process.
11/27/23- No acute cardiopulmonary process.
CT Scan:
Echo: 11/28/23- Normal left ventricular size and systolic function, mild LVH, stage I diastolic dysfunction. Normal right ventricular size and function. The aorta has atheroma less than 5 mm and mild calcifications.
Mild to moderate left atrial enlargement. Mild tricuspid regurgitation.
[facility] 11/26/23- ASSESSMENT:
1: Severe obstructive two-vessel disease in the LAD and circumflex with significant left main as described above.
2: Normal left ventricular filling pressures with no significant mitral regurgitation.
3: Mild LV systolic dysfunction with LAD territory wall motion abnormality as described above.
PFT's:
Reports and relevant images were personally reviewed.
-----
Critical Care time 51 mins -- The patient is admitted for acute critical illness for the treatment of vital organ failure and/or prevention of further life-threatening conditions. Total care includes time spent in review of history, physical exam,
medications, hemodynamic/ventilator parameters, laboratory data, imaging and discussion with house staff, pharmacy, respiratory therapy, lane attendant, and nursing.
[2023-11-28 12:01] LABS: Glucose - Point of Care 99 mg/dl (70-99)
--- NOTE | 2023-11-28 12:07 | PTCARENOTE ---
Dr. Willis in room at 1150 and adjusted tidal volume on ventilator to 600. RT at bedside and FiO2 adjusted to 40%.
[2023-11-28] MEDS: CALCIUM CHLORIDE 10% SYRINGE 50 MG IV (12:14)
[2023-11-28] MEDS: CALCIUM CHLORIDE 10% SYRINGE 50 ML IV (12:14)
[2023-11-28 12:57] LABS: B.E. -2.8 mmol/L; HCO3 23.2 mmol/L (21-28); Ionized Calcium 1.27 mMOL/L (1.15-1.33); O2 Saturation % 95.3 % (94-98); PCO2 44 mmHg (35-48); PO2 71 mmHg (83-108); Potassium 4.3 mMOL/L (3.5-5.1); Sodium 136 mMOL/L (136-145); pH 7.33 (7.35-7.45)
[2023-11-28 12:59] LABS: Glucose - Point of Care 106 mg/dl (70-99)
--- NOTE | 2023-11-28 13:26 | PTCARENOTE ---
Updated Dr. Willis with ABG results and vent changes. Instructed to maintained PEEP 5, and drop FI02 to 40%. Respiratory therapist updated and vent changed completed as ordered.
[2023-11-28] MEDS: TYLENOL PO (13:29)
--- NOTE | 2023-11-28 13:50 | PTCARENOTE ---
RT in room and pt placed on CPAP. ABG's due at 1420
[2023-11-28 14:00] LABS: Glucose - Point of Care 90 mg/dl (70-99)
[2023-11-28 14:36] LABS: B.E. -3.1 mmol/L; O2 Saturation % 97.6 % (94-98); PCO2 50 mmHg (35-48); PO2 89 mmHg (83-108); pH 7.29 (7.35-7.45)
--- NOTE | 2023-11-28 14:53 | PTCARENOTE ---
ABG's reviewed w/ RANDALL Houser and MD Willis. Pt placed back on SIMV /08/17 by RT at 1445.
[2023-11-28 14:59] LABS: Glucose - Point of Care 107 mg/dl (70-99)
[2023-11-28 15:04] LABS: Hematocrit 40.8 % (39.0-52.0); Hemoglobin 14.2 g/dL (13.0-18.0); Platelet Count 200 10^3/uL (130-400)
--- NOTE | 2023-11-28 15:26 | CM ---
pt in the OR today, cm to follow.
[2023-11-28] MEDS: OFIRMEV 100 IV (15:51)
[2023-11-28] MEDS: ANCEF 5 IV (15:53)
[2023-11-28] MEDS: PACERONE PO (16:05)
[2023-11-28 16:18] LABS: HCO3 24.3 mmol/L (21-28); Ionized Calcium 1.24 mMOL/L (1.15-1.33); O2 Saturation % 97.3 % (94-98); PCO2 46 mmHg (35-48); PO2 82 mmHg (83-108); Potassium 4.5 mMOL/L (3.5-5.1); Sodium 136 mMOL/L (136-145); pH 7.33 (7.35-7.45)
--- NOTE | 2023-11-28 16:18 | PTCARENOTE ---
Pt placed on CPAP by RT at 1545. ABG's sent and awaiting results.
--- NOTE | 2023-11-28 16:32 | PTCARENOTE ---
ABG's reviewed w/ CVCHARLES Houser; RT at bedside; Pt extubated at 1630; Pt placed on 6L NC.
--- NOTE | 2023-11-28 16:39 | RESPNOTE ---
pt extubated at 1630 to 6lpm nasal cannula. 02 sats of 96% noted
[2023-11-28] MEDS: LOPRESSOR 5 MG IV (16:42)
[2023-11-28 16:59] LABS: Glucose - Point of Care 95 mg/dl (70-99)
[2023-11-28] MEDS: LIPITOR PO (17:14)
[2023-11-28] MEDS: LOW STRENGTH ASPIRIN 81 MG PO (17:23)
[2023-11-28] MEDS: COZAAR 50 MG PO (17:23)
[2023-11-28 18:58] LABS: Glucose - Point of Care 95 mg/dl (70-99)
[2023-11-28] MEDS: CARDENE 200 IV (19:20)
--- NOTE | 2023-11-28 20:00 | PTCARENOTE ---
Received pt from dayshift; pt resting comfortably in bed; pt is AAOx4, denies pain at this time; NSR on monitor, VSS; heart sounds audible, rub present, radial and DP pulses palpable, no edema noted; lungs diminished at b/l bases, spo2 93% on 6LNC,
right/left pleural CT and x2 MS CT to -20 wall suction, no air leaks, no crepitus; hypoactive BS x4 quadrants, abdomen soft non tender; pt voiding clear yellow urine via flores catheter; surgical site maintained; right IJ cordis/slick, left radial
A-line, and PIV all maintained, leveled, and zeroed; insulin gtt infusing; Cardene gtt ordered for increased SPB, SPo2 began to drop, possible shutting, Cardene stopped and nitro started per CVPA, see worklist; pt washed with CHG wipes, flores care
provided, new gown and tele leads placed; call cabello within reach; will continue to monitor.
[2023-11-28] MEDS: NITROGLYCERIN PREMIX 250 IV (20:03)
[2023-11-28] MEDS: SENOKOT-S PO (20:12)
[2023-11-28 20:27] LABS: B.E. -2.9 mmol/L; HCO3 23.2 mmol/L (21-28); PCO2 44 mmHg (35-48); PO2 65 mmHg (83-108); Potassium 4.6 mMOL/L (3.5-5.1); pH 7.33 (7.35-7.45)
[2023-11-28 21:07] LABS: Glucose - Point of Care 88 mg/dl (70-99)
[2023-11-28] MEDS: TYLENOL 1000 MG PO (21:28)
[2023-11-28] MEDS: LR IV (21:28)
[2023-11-28] MEDS: PACERONE 200 MG PO (21:28)
[2023-11-28] MEDS: SODIUM BICARBONATE 50 MEQ IV (21:28)
[2023-11-28] MEDS: NEURONTIN 100 MG PO (21:28)
[2023-11-28 22:09] LABS: Glucose - Point of Care 97 mg/dl (70-99)
[2023-11-28 22:13] LABS: HCO3 23.7 mmol/L (21-28); O2 Saturation % 98.4 % (94-98); PCO2 43 mmHg (35-48); PO2 90 mmHg (83-108); pH 7.35 (7.35-7.45)
[2023-11-28 23:08] LABS: Glucose - Point of Care 102 mg/dl (70-99)
[2023-11-29] VITALS (23 sets, daily range): BP systolic 88–152; BP diastolic 62–90; PULSE 67; O2SAT 94–95; BMI 29.4
--- NOTE | 2023-11-29 | PTCARENOTE ---
Pt resting comfortably in bed; NSR on monitor, one brief episode of bradycardia, HR of 47; BP stable on nitro gtt; pt placed on midflow NC @ 8 L O2 @2130, spo2 95%, ABGs taken again and have improved; call cabello within reach; will continue to
monitor.
[2023-11-29] MEDS: ANCEF 5 IV ×2 (00:04→09:14)
[2023-11-29 00:09] LABS: Glucose - Point of Care 99 mg/dl (70-99)
[2023-11-29 01:31] LABS: Glucose - Point of Care 98 mg/dl (70-99)
[2023-11-29] MEDS: ROXICODONE 5 MG PO ×2 (02:35→23:18)
[2023-11-29 02:54] LABS: Glucose - Point of Care 100 mg/dl (70-99)
[2023-11-29 03:29] LABS: Hematocrit 39.5 % (39.0-52.0); Hemoglobin 13.5 g/dL (13.0-18.0); Mean Corp Hgb Conc. 34.2 g/dL (33.0-37.0); Mean Corpuscular Hgb 30.7 pg (27.0-31.0); Mean Corpuscular Volume 89.8 fL (80.0-94.0); Mean Platelet Volume 9.3 fL (7.4-10.4); Platelet Count 188 10^3/uL (130-400); Red Cell Dist. Width 11.9 % (11.5-14.5); White Blood Cell Count 14.2 10^3/uL (4.8-10.8)
[2023-11-29 03:51] LABS: Blood Urea Nitrogen 24 mg/dl (9-20); Calcium 8.8 mg/dl (8.4-10.2); Carbon Dioxide 24 mmol/L (22-30); Chloride 106 mmol/L (98-107); Estimated Creatinine Clearance 51 ml/min; Glucose 97 mg/dl (70-99); Magnesium 2.1 mg/dl (1.6-2.3); Potassium 4.3 mmol/L (3.5-5.1); Sodium 138 mmol/L (135-145); eGFR > 60.00
--- NOTE | 2023-11-29 04:00 | PTCARENOTE ---
Pt assessment unchanged; VSS, NSR/SB on monitor; call cabello within reach, will continue to monitor.
--- NOTE | 2023-11-29 04:07 | W.PN.CT ---
Today's Communication / Plan
-
-pod #1
-no significant issues overnight
-monitor for bradycardia - had brief transient drops of hr from 70s to 40s with stable BP while sleeping. Pt's hr was 40s-50s preop also with low-dose Lopressor. Held Lopressor postop
-drips: Insulin
-delined
-d/c Avitia
-d/c insulin
-current meds (ASA, Plavix, Lopressor, Amio, Lipitor, Protonix, Lexapro)
-monitor Qt with Amio and Lexapro
-encourage IS, OOB
Assessment / Plan
-
- mv-CAD/NSTEMI - s/p off pump Cabg x 2 (Darling-Lad, Marivel 'off Darling'- OM) on 11/28/[address] Willis, pod #1
- Intraop Sabino with preserved EF pre and post revasc, no NWMA
- HTN
- HLD
- GERD/Baldwin's
- Depression
- Acute postop blood loss anemia - stable, no transfusion
- Acute postop atelectasis
- Acute postop hypovolemia with subsequent hypervolemia
Discussed patient care with: Nursing and Care Team
Subjective
Procedure
- s/p off pump Cabg x 2 (Darling-Lad, Marivel 'off Darling'- OM) on 11/28/[address] Willis
-
Date of Service: November 28, 2023
Objective Data
-
Lab Results
11/28/23 14:48
11/28/23 10:55
PT 15.4 Sec (11.4-14.6) H 11/28/23 10:55
INR 1.21 11/28/23 10:55
APTT 30.5 Sec (23.4-35.0) 11/28/23 10:55
Vital Signs
Vital Signs
Temp Pulse Resp BP Pulse Ox
98.5 F 79 20 125/81 94
11/28/23 22:00 11/28/23 21:05 11/28/23 22:00 11/28/23 21:00 11/28/23 22:00
CT Intake/Output/Weight
11/28/23 11/28/23 11/29/23
06:59 18:59 06:59
Intake Total 940.8 / 1027.0 86.2 / 1027.0
Output Total 905 / 1205 300 / 1205
Balance 35.8 / -178.0 -213.8 / -178.0
SaO2: 94
Physical Exam
-
General: Awake and AOx3
Cardiovascular: Regular rate & rhythm, No Murmurs and Rub
Respiratory: Decreased Breath Sounds
Sternum: Stable
Incision: Clean, Dry and Intact
Extremities: No Edema (2+ DP b/l)
Abdominal: soft, nontender, nondistended, + bowel sounds
Data Reviewed
-
Lab Results: Results Reviewed
Medications: Active Meds Reviewed
Chest X-Ray: Report Reviewed and Image Reviewed
ECG: Report Reviewed and Image Reviewed
--- NOTE | 2023-11-29 04:42 | PTCARENOTE ---
A-line and slick removed without issue, per CVPA. Call cabello within reach, will continue to monitor.
[2023-11-29] MEDS: TYLENOL 1000 MG PO ×3 (04:57→21:02)
[2023-11-29 05:04] LABS: Glucose - Point of Care 99 mg/dl (70-99)
[2023-11-29 07:21] LABS: Glucose - Point of Care 111 mg/dl (70-99)
--- NOTE | 2023-11-29 07:57 | W.PN.ANS.POP ---
Anesthesia Post Operative
- Anesthesia Post Op Note
Vital Signs Stable-See Nursing Note: Yes
Airway Patent: Yes
Adequate Pain Control: Yes
Change in Mental Status: No
Current Postoperative Nausea & Vomiting: No
Anesthesia Complications: No
General Anesthetic Recall: No
Unplanned Admission: No
Post Op Hydration Adequate: Yes
- -
Pt awake and alert, VSS, pt OOB to chair with no anesthesia r/t c/o at time of post op visit.
--- NOTE | 2023-11-29 08:00 | PTCARENOTE ---
Resumed patient from previous RN. pt is AAOx3. OOB in chair at time of assessment. NSR HR 50-70s. +rub present, +pulses. no edema. lungs diminished at b/l bases, spo2 93% on 2LNC, right/left pleural CT and x2 MS CT to -20 wall suction, no air leaks,
no crepitus. hypoactive bs. due to void. right IJ cordis. PIV. insulin gtt infusing. will continue to monitor.
[2023-11-29] MEDS: NSS IV (08:57)
[2023-11-29] MEDS: NEURONTIN 100 MG PO ×3 (09:14→21:02)
[2023-11-29] MEDS: FEOSOL 325 MG PO (09:15)
[2023-11-29] MEDS: LEXAPRO 10 MG PO (09:15)
[2023-11-29] MEDS: PROTONIX 40 MG PO (09:15)
[2023-11-29] MEDS: MAGNESIUM OXIDE 500 MG PO ×2 (09:15→20:55)
[2023-11-29] MEDS: LIDOCAINE 4% PATCH 1 PATCH TOPICAL (09:16)
[2023-11-29] MEDS: LOW STRENGTH ASPIRIN 81 MG PO (09:16)
[2023-11-29] MEDS: PLAVIX 75 MG PO (09:16)
[2023-11-29] MEDS: SENOKOT-S 1 TABLET PO ×2 (09:16→20:56)
[2023-11-29] MEDS: BACTROBAN 2% OINTMENT 1 APPLIC NASAL ×2 (09:17→20:55)
[2023-11-29 09:22] LABS: Glucose - Point of Care 129 mg/dl (70-99)
[2023-11-29 11:19] LABS: Glucose - Point of Care 117 mg/dl (70-99)
--- NOTE | 2023-11-29 12:00 | PTCARENOTE ---
d/c med CT and bulbed both pleural tubes per orders.
--- NOTE | 2023-11-29 14:51 | W.PN.INTV ---
Today's Communication / Plan
Recommendations
Desat noted with ambulation likely related to postop atelectasis
If ongoing, can eval outpatient PFT/6MWT
Otherwise, doing well, pain control
Transitioned off insulin gtt
Further postop care per team
Transfer to tele, we will sign off at this time, please call with questions
Assessment
-
Patient is a 78-year-old man with previous history of hypertension, hyperlipidemia presenting to the ER with approximately 10 days of progressively worsening chest pain, nonexertional with associated orthopnea. EKG demonstrating new lateral T wave
inversions compared to old. Troponin on arrival elevated demonstrating NSTEMI. Underwent cardiac catheterization 11/26/2023 showing severe two-vessel disease in LAD and circumflex. CT surgery was consulted for evaluation, underwent CABG x 2
11/28/2023 and postoperative transferred to CVICU for further management.
Multivessel CAD status post CABG x 2 11/28/2023
Perioperative mechanical ventilation
NSTEMI
Chest pain with EKG changes, elevated troponins
Conditions present HELP AID
Hypertension
Hyperlipidemia
GERD/hiatal hernia
Cataracts
Depression
Former smoker, quit in his 30s
Plan
S/p CAB POD #1
Off pressors, stable
ECHO reviewed with normal function
PA catheter readings reviewed
Management of chest tubes per primary service
Pain control
RASS goal of 0 to -1
Intubated for procedure, extubated and doing well
ABG(s) reviewed/adequate
CXR with stable changes, LLV/atelectasis noted
Maintain supplement oxygen as needed
Exertional desat noted, most commonly due to postop atelectasis
If ongoing, can eval cause
No prior history of pulmonary disease, former smoker but quit many years ago
No Prior PFTs for review
Can add nebulizers if needed
Aspiration precautions
Encouraged incentive spirometry, OOB/ambulation/early mobility
If MAYA an ongoing concern, can eval in OP setting with PFT
Advance diet as tolerated following extubation
GI prophylaxis if indicated for mechanical ventilation >48 hours
Monitor critical I/O's
Avitia/chest tube output
Hb/platelets postoperatively stable
Trend CBC for now
Can transfuse if indicated for Hb <7, plt <50 in surgical patients
DVT prophylaxis including SCDs
Insulin protocol initiated and transitioned to off
SS coverage PRN
Diagnostic Data
Chest X-Ray: 11/29/23- Low lung volumes with bronchovascular crowding and bibasilar atelectasis. No definite effusion or pneumothorax.
11/28/23- Low lung volumes. No active pulmonary process.
11/27/23- No acute cardiopulmonary process.
CT Scan:
Echo: 11/28/23- Normal left ventricular size and systolic function, mild LVH, stage I diastolic dysfunction. Normal right ventricular size and function. The aorta has atheroma less than 5 mm and mild calcifications.
Mild to moderate left atrial enlargement. Mild tricuspid regurgitation.
[facility] 11/26/23- ASSESSMENT:
1: Severe obstructive two-vessel disease in the LAD and circumflex with significant left main as described above.
2: Normal left ventricular filling pressures with no significant mitral regurgitation.
3: Mild LV systolic dysfunction with LAD territory wall motion abnormality as described above.
PFT's:
Reports and relevant images were personally reviewed.
-----
Critical Care time 31 mins -- The patient is admitted for acute critical illness for the treatment of vital organ failure and/or prevention of further life-threatening conditions. Total care includes time spent in review of history, physical exam,
medications, hemodynamic/ventilator parameters, laboratory data, imaging and discussion with house staff, pharmacy, respiratory therapy, rn nursery, and nursing.
Subjective Dataa
Subjective Data
Date of Service:
Date of Service: November 29, 2023
Chief Complaint: Spine Specialist Follow Up
Subjective:
Extubated and doing well
Some desaturation with ambulation noted, MAYA noted as well
Objective Data
Data Reviewed
Vital Signs / I&O / Oxygen:
Vital Signs
Temp Pulse Resp BP Pulse Ox
98 F 61 20 105/62 95
11/29/23 08:00 11/29/23 10:20 11/29/23 06:00 11/29/23 10:02 11/29/23 10:20
Intake and Output
11/28/23 11/29/23 11/30/23
06:59 06:59 06:59
Intake Total 360 / 360 1174.6 / 1185.8 33.9 / 33.9
Output Total 1685 / 1715 45 / 45
Balance 360 / 360 -510.4 / -529.2 -11.1 / -11.1
SaO2 [CPAP] 95
SaO2 [SIMV] 92
SaO2 95
Nasal Cannula flow liters per 3
minute
Physical Exam
General: Comfortable and Other (NAD)
HEENT: Normocephalic, Anicteric and Moist Mucous Membranes
Cardiovascular: S1-S2 and Regular Rhythm
Respiratory: Clear, Non-Labored Respirations and Chest Tube
GI: Soft, Non Distended and Non Tender
Neurology: Awake, Alert, Oriented, AO x 3 and No Motor Deficits
Skin: Warm, Dry and Good Color
Labs/Micro/Reports
Lab Data
11/29/23 02:47
11/29/23 02:47
Laboratory Results
11/28/23 11/28/23 11/28/23
16:11 20:22 22:03
pH 7.33 L 7.33 L 7.35
pCO2 46 44 43
pO2 82 L 65 L 90
HCO3 24.3 23.2 23.7
O2 Delivery Level
Microbiology
11/26/23 22:29 Nose MRSA Screen - Final
No Methicillin Resistant Staphylococcus aureus isolated.
--- NOTE | 2023-11-29 15:01 | W.PN.CARDCBS ---
Today's Communication / Plan
-
Supportive postop care
Impression / Plan
-
Primary care physician: Alpesh Sam DO
Primary marquetry worker: Parrish Diaz MD of [facility]
Impression:
unstable angina/NSTEMI, peak trop 0.7
s/p Cath with severe two-vessel CAD in LAD and circumflex with significant left main 11/26/23
s/p CABG x2 KATHLEEN to LAD, DALE to OM, off pump 11/28/23
HTN
Hyperlipidemia
GERD/hiatal hernia
Cataracts
Depression
ECHO 11/26/23: EF 45 to 50%, mild concentric LVH, hypokinesis of mid to apical anterolateral, inferolateral, inferoseptal, anteroseptal, apical, mitral sclerosis, mild MR, PAP 35 to 40 mmHg
Plan:
Non-STEMI who presented to [facility] on transfer to [facility] for cardiac catheterization 11/26/2023 found to have multivessel coronary artery disease including left main disease
-Hemodynamically stable status post CABG x2 KATHLEEN to LAD, DALE to OM, off pump 11/28/23
-Monitor telemetry. Lopressor held last night for sinus bradycardia.
-Twelve-lead EKG today sinus bradycardia with T wave abnormality inferior lateral segments prior.
-Chest tube management per CT surgery
-asa, plavix when ok per surgery given NSTEMI presentation
-continue post op care
-d/w nursing
PREADMIT DATA:
78-year-old man with history of hypertension, hyperlipidemia, hiatal hernia, GERD, who presented to the ED with approximately 10 days of progressively worsening chest tightness.
Chest pain description was fairly atypical since it was non-exertional and worse with laying flat. However EKG showed new lateral T wave inversions compared to old prior EKG. Troponin on arrival was minimally elevated to 63, however overnight
progressively drew to 149. EKG this AM showed dynamic changes with deeper lateral T wave inversions and prolonged QTc. He is transferred today for [facility].
Progress Note - Tray Service Worker
Subjective
Date of Service: November 29, 2023
Patient seen and examined. Sitting out of bed to chair and states he is surprised how well he feels. Denies chest pain or pressure suggestive of angina. No shortness of breath or dizziness. Mild incisional tenderness
Objective
Labs:
11/29/23 02:47
11/29/23 02:47
Labs
Hgb 13.5 g/dL (13.0-18.0) 11/29/23 02:47
Hct 39.5 % (39.0-52.0) 11/29/23 02:47
Plt Count 188 10^3/uL (130-400) 11/29/23 02:47
PT 15.4 Sec (11.4-14.6) H 11/28/23 10:55
INR 1.21 11/28/23 10:55
APTT 30.5 Sec (23.4-35.0) 11/28/23 10:55
Sodium 138 mmol/L (135-145) 11/29/23 02:47
Potassium 4.3 mmol/L (3.5-5.1) 11/29/23 02:47
BUN 24 mg/dl (9-20) H 11/29/23 02:47
Creatinine 1.1 mg/dL (0.7-1.3) 11/29/23 02:47
Glucose 97 mg/dl (70-99) 11/29/23 02:47
Troponins
11/26/23 11/27/23 11/27/23
22:29 05:00 12:16
Troponin I 0.705 H* 0.709 H* 0.454 H* D
Vital Signs and I&O:
Vital Signs
Temp Pulse Resp BP Pulse Ox
98.2 F 76 20 136/79 92
11/29/23 12:00 11/29/23 14:55 11/29/23 06:00 11/29/23 13:00 11/29/23 14:55
Vital Signs
Temp Pulse Resp BP Pulse Ox
98.2 F 76 20 136/79 92
11/29/23 12:00 11/29/23 14:55 11/29/23 06:00 11/29/23 13:00 11/29/23 14:55
Intake & Output
11/27/23 11/28/23 11/29/23 11/30/23
06:59 06:59 06:59 06:59
Intake Total 1346 / 1346 360 / 360 1174.6 / 1185.8 33.9 / 33.9
Output Total 1685 / 1715 45 / 45
Balance 1346 / 1346 360 / 360 -510.4 / -529.2 -11.1 / -11.1
Physical Exam
Physical Exam
General: No acute distress, AAOX3
Neck: Negative JVD
Heart: Regular, Negative S3 positive S1/S2, No murmur or rub
Lungs: Bronchovesicular breath sounds decreased throughout. Positive chest tubes
Abd: Positive BS, NT/ND, neg rebound/rigidity/guarding
Ext: No lower extremity edema. Midline incision intact
Neuro: nonfocal
[2023-11-29] MEDS: LIPITOR 40 MG PO (16:41)
--- NOTE | 2023-11-29 16:42 | PTCARENOTE ---
walked halls x4
[2023-11-29] MEDS: LOPRESSOR 12.5 MG PO (20:55)
--- NOTE | 2023-11-29 21:00 | PTCARENOTE ---
Patient received OOB in chair watching television. Family at bedside. Patient A+A+Ox3. Patient wears bilateral hearing aids. Patient with no c/o pain or discomfort. O2 at 2L via NC. SaO2 91%. No c/o SOB. No MAYA. Patient ambulated to
bathroom to void with minimal assistance. Patient with Right Pleural chest tube to bulb (40 ml - Sanguineous drainage). Left Pleural chest tube to bulb (100 ml - Sanguineous drainage). Empty and compress bulbs per protocol. Sinus Rhythm. Heart
rate 80-90's. Patient with no c/o chest pain, pressure or discomfort. Normoactive bowel sounds. No BM. No c/o nausea. No vomiting. Sternal incision - Intact - Surgical adhesive - Open to air. Patient with no c/o back or flank pain. Right
I.J. Cordis - Intact and patent. Assessment as documented.
[2023-11-29] MEDS: PACERONE 200 MG PO (23:00)
--- NOTE | 2023-11-29 23:00 | PTCARENOTE ---
Patient resting in bed. Assist to bathroom to void. Back to bed. Right Pleural chest tube bulb - 10 ml. Left Pleural chest tube bulb - 10 ml. Sinus Rhythm. Heart rate 80's. Blood pressure 126/73 (89). O2 at 3L via NC. SaO2 91%. Assessment
as documented.
[2023-11-30] VITALS (13 sets, daily range): BP systolic 115–142; BP diastolic 61–87; PULSE 70; O2SAT 81–95; BMI 29.8
[2023-11-30] MEDS: FLEXERIL 5 MG PO (00:59)
--- NOTE | 2023-11-30 01:30 | PTCARENOTE ---
Patient assisted to bathroom to void. Back to bed. Roxicodone 5mg PO for c/o 5/10 sternal pain. Flexeril 5mg PO for c/o left shoulder soreness. Right Pleural bulb (10 ml). Left Pleural bulb (20 ml). O2 at 3L via NC. SaO2 92%. Sinus Rhythm.
Heart rate 70-80's. Blood pressure 123/65 (83). Assessment as documented.
[2023-11-30] MEDS: NSS 500 IV (04:25)
[2023-11-30] MEDS: ROXICODONE 5 MG PO ×3 (04:26→23:03)
[2023-11-30] MEDS: TYLENOL 1000 MG PO ×3 (04:26→22:53)
--- NOTE | 2023-11-30 05:00 | PTCARENOTE ---
Patient A+A+Ox3. No neurological deficits noted. No c/o headache, dizziness or lightheadedness. AM lab work collected and sent. Patient ambulated to bathroom to void. Right Pleural CT Bulb (10 ml). Left Pleural CT Bulb (30 ml). Standing scale
weight 83.6 kg. OOB to chair. Assessment/Interventions as documented.
--- NOTE | 2023-11-30 05:01 | W.PN.CT ---
Today's Communication / Plan
-
-No major issues overnight. Hemodynamically and neurologically intact
-Off all drips
-Noted to be tachycardic yesterday, resumed Amiodarone @ 200 mg po BiD. Will increase BB if BP permits
-Consider d/c of R pleural chest tube: Rpl 70/70, Lpl 160/160
-Cont. current meds (ASA, Plavix, Lopressor, Amio, Lipitor, Protonix, Lexapro)
-No temporary PW
-D/C cordis tomorrow
-Mg 2.4, mag oxide placed on hold
-Wean off of o2, currently on 3L NC
-OOB into chair/Ambulate
Assessment / Plan
-
Assessment:
- mv-CAD/NSTEMI (peak trop of 0.709) - s/p off pump Cabg x 2 (Darling-Lad, Marivel 'off Darling'- OM) on 11/28/[address] Willis, pod #2
- Intraop Sabino with preserved EF pre and post revasc, no NWMA
- HTN
- HLD
- Class 1 obesity (BMI 30)
- GERD/Baldwin's
- Depression
- Acute postop blood loss anemia - stable, no transfusion
- Acute postop atelectasis
- Acute postop hypovolemia with subsequent hypervolemia
Discussed patient care with: Cardiology, Nursing, Respiratory Therapy, Pharmacy and Care Team
Subjective
Procedure
- s/p off pump Cabg x 2 (Darling-Lad, Marivel 'off Darling'- OM) on 11/28/[address] Willis
-
Date of Service: November 30, 2023
Pt c/o mild incisional pain, otherwise feels well
Objective Data
-
PT 15.4 Sec (11.4-14.6) H 11/28/23 10:55
INR 1.21 11/28/23 10:55
APTT 30.5 Sec (23.4-35.0) 11/28/23 10:55
Vital Signs
Vital Signs
Temp Pulse Resp BP Pulse Ox
99.2 F 80 16 135/75 92
11/30/23 04:15 11/30/23 04:15 11/30/23 04:15 11/30/23 04:15 11/30/23 04:15
CT Intake/Output/Weight
11/29/23 11/29/23 11/30/23
06:59 18:59 06:59
Intake Total 233.8 / 1185.8 563.9 / 903.9 340 / 903.9
Output Total 780 / 1715 45 / 275 230 / 275
Balance -546.2 / -529.2 518.9 / 628.9 110 / 628.9
SaO2: 92 (3L NC)
Physical Exam
-
General: Awake, Oriented and AOx3
Cardiovascular: Regular rate & rhythm, No Murmurs, No Rub and No Gallop
Respiratory: Decreased Breath Sounds (at bases, otherwise clear)
Sternum: Stable
Incision: Clean, Dry, Intact and Dressing Intact
Extremities: No Edema
Data Reviewed
-
Lab Results: Results Reviewed
Medications: Active Meds Reviewed
Chest X-Ray: Report Reviewed and Image Reviewed
ECG: Report Reviewed and Image Reviewed
[2023-11-30 05:19] LABS: Hematocrit 39.4 % (39.0-52.0); Hemoglobin 13.3 g/dL (13.0-18.0); Mean Corp Hgb Conc. 33.8 g/dL (33.0-37.0); Mean Corpuscular Hgb 30.7 pg (27.0-31.0); Mean Platelet Volume 9.3 fL (7.4-10.4); Platelet Count 188 10^3/uL (130-400); Red Blood Cell Count 4.33 10^6/uL (4.70-6.10); Red Cell Dist. Width 12.3 % (11.5-14.5); White Blood Cell Count 13.9 10^3/uL (4.8-10.8)
[2023-11-30 05:44] LABS: Blood Urea Nitrogen 29 mg/dl (9-20); Calcium 8.8 mg/dl (8.4-10.2); Carbon Dioxide 31 mmol/L (22-30); Chloride 99 mmol/L (98-107); Estimated Creatinine Clearance 52 ml/min; Glucose 119 mg/dl (70-99); Magnesium 2.4 mg/dl (1.6-2.3); Potassium 4.4 mmol/L (3.5-5.1); Sodium 135 mmol/L (135-145); eGFR > 60.00
[2023-11-30] MEDS: LIDOCAINE 4% PATCH 1 PATCH TOPICAL (08:49)
[2023-11-30] MEDS: FEOSOL 325 MG PO (08:49)
[2023-11-30] MEDS: SENOKOT-S 1 TABLET PO ×2 (08:49→20:33)
[2023-11-30] MEDS: LOW STRENGTH ASPIRIN 81 MG PO (08:49)
[2023-11-30] MEDS: LOPRESSOR 12.5 MG PO ×2 (08:49→20:32)
[2023-11-30] MEDS: NEURONTIN 100 MG PO ×3 (08:49→22:53)
[2023-11-30] MEDS: PLAVIX 75 MG PO (08:49)
[2023-11-30] MEDS: LEXAPRO 10 MG PO (08:49)
[2023-11-30] MEDS: PACERONE 200 MG PO ×2 (08:49→20:33)
[2023-11-30] MEDS: PROTONIX 40 MG PO (08:49)
[2023-11-30] MEDS: BACTROBAN 2% OINTMENT 1 APPLIC NASAL ×2 (08:50→20:32)
--- NOTE | 2023-11-30 09:33 | PTCARENOTE ---
assumed care of pt from previous shift RN, sinus rhythm w BBB on tele, + peripheral pulses, no edema. Lungs diminished, coughing and deep breathing encouraged. +bs, tolerating PO intake. Voids spontaneously, adequate. Pleural Cts maintained to bulb
suction. MSI w surgical glue intact, PIV flushes easily, cordis maintained w KVO infusing. plan of care reviewed w the pt and questions encouraged.
--- NOTE | 2023-11-30 13:12 | PTCARENOTE ---
VSS, sinus rhythm on tele. Pt states he 'feels great' and frequently ambulating in hallways. Pox 89-90% on RA.
[2023-11-30] MEDS: LIPITOR 40 MG PO (16:18)
[2023-11-30 17:46] LABS: Glucose - Point of Care 171 mg/dl (70-99)
--- NOTE | 2023-11-30 20:30 | PTCARENOTE ---
Patient received resting in bed. Patient A+A+Ox3. No neurological deficit noted. Patient wears bilateral hearing aids. O2 at 3L via NC. SaO2 92%. Right Pleural chest tube to bulb (10 ml) and Left Pleural chest tube to bulb (20 ml). Empty and
compress per protocol. Red drainage. Chest tube dressing intact. Sinus Rhythm. Heart rate 60's. Blood pressure 115/61 (77). Patient with no c/o chest pain, pressure or discomfort. Normoactive bowel sounds. No BM. No c/o nausea. No
vomiting. Voiding without difficulty. Right I.J. Cordis - Intact and patent - Saline flush 10 ml/hr. Positive, palpable pulses. Trace edema. Patient with no c/o back or flank pain. Patient continues with c/o left shoulder soreness. Patient
resting on right side in bed. Warm blanket to left shoulder. Assessment as documented.
[2023-11-30] MEDS: MELATONIN 5 MG PO (23:04)
[2023-12-01] VITALS (11 sets, daily range): BP systolic 109–139; BP diastolic 69–75; BMI 29.9
--- NOTE | 2023-12-01 | PTCARENOTE ---
Patient sleeping without difficulty. No further changes from previous assessment.
--- NOTE | 2023-12-01 04:17 | W.PN.CT ---
Today's Communication / Plan
-
Plan:
-No major issues overnight. Hemodynamically and neurologically intact
-Off all drips
-Consider d/c of chest tubes: Rpl 5/25, Lpl 30/80
-Will obtain 2-view cxr today after d/c of chest tubes
-Wean off of o2, currently on 3L NC
-Cont. current meds (ASA, Plavix, Lopressor, Amio, Lipitor, Protonix, Lexapro)
-No temporary PW
-D/C cordis
-OOB into chair/Ambulate
-Likely home later today
Assessment / Plan
-
Assessment:
- mv-CAD/NSTEMI (peak trop of 0.709) - s/p off pump Cabg x 2 (Darling-Lad, Marivel 'off Darling'- OM) on 11/28/[address] Willis, pod #3
- Intraop Sabino with preserved EF pre and post revasc, no NWMA
- HTN
- HLD
- Class 1 obesity (BMI 30)
- GERD/Baldwin's
- Depression
- Acute postop blood loss anemia - stable, no transfusion
- Acute postop atelectasis
- Acute postop hypovolemia with subsequent hypervolemia
Discussed patient care with: Cardiology, Nursing, Respiratory Therapy, Pharmacy and Care Team
Subjective
Procedure
- s/p off pump Cabg x 2 (Darling-Lad, Marivel 'off Darling'- OM) on 11/28/[address] Willis
-
Date of Service: December 01, 2023
Pt c/o left shoulder/pleuritic chest pain, otherwise feels well
Objective Data
-
PT 15.4 Sec (11.4-14.6) H 11/28/23 10:55
INR 1.21 11/28/23 10:55
APTT 30.5 Sec (23.4-35.0) 11/28/23 10:55
Vital Signs
Vital Signs
Temp Pulse Resp BP Pulse Ox
98.1 F 60 16 133/75 91
12/01/23 01:59 12/01/23 04:01 12/01/23 01:59 12/01/23 04:01 12/01/23 04:01
CT Intake/Output/Weight
11/30/23 11/30/23 12/01/23
06:59 18:59 06:59
Intake Total 360 / 923.9 130 / 450 320 / 450
Output Total 230 / 275 40 / 90 50 / 90
Balance 130 / 648.9 90 / 360 270 / 360
SaO2: 92 (3L)
Physical Exam
-
General: Awake, Oriented and AOx3
Cardiovascular: Regular rate & rhythm, No Murmurs, No Rub and No Gallop
Respiratory: Decreased Breath Sounds (at bases with minimal basilar crackles, otherwise clear)
Sternum: Stable
Incision: Clean, Dry, Intact and Dressing Intact
Extremities: No Edema
Data Reviewed
-
Lab Results: Results Reviewed
Medications: Active Meds Reviewed
Chest X-Ray: Report Reviewed and Image Reviewed
ECG: Report Reviewed and Image Reviewed
[2023-12-01 04:26] LABS: Hematocrit 35.8 % (39.0-52.0); Hemoglobin 12.3 g/dL (13.0-18.0); Mean Corp Hgb Conc. 34.4 g/dL (33.0-37.0); Mean Corpuscular Hgb 30.3 pg (27.0-31.0); Mean Corpuscular Volume 88.2 fL (80.0-94.0); Mean Platelet Volume 9.1 fL (7.4-10.4); Platelet Count 197 10^3/uL (130-400); Red Blood Cell Count 4.06 10^6/uL (4.70-6.10); Red Cell Dist. Width 12.4 % (11.5-14.5); White Blood Cell Count 12.3 10^3/uL (4.8-10.8)
[2023-12-01] MEDS: TYLENOL 1000 MG PO ×2 (04:42→22:29)
[2023-12-01 04:47] LABS: Blood Urea Nitrogen 29 mg/dl (9-20); Calcium 8.8 mg/dl (8.4-10.2); Carbon Dioxide 31 mmol/L (22-30); Chloride 99 mmol/L (98-107); Estimated Creatinine Clearance 63 ml/min; Glucose 114 mg/dl (70-99); Magnesium 2.5 mg/dl (1.6-2.3); Potassium 4.6 mmol/L (3.5-5.1); Sodium 136 mmol/L (135-145); eGFR > 60.00
--- NOTE | 2023-12-01 05:00 | PTCARENOTE ---
Patient A+A+Ox3. No neurological deficits noted. Patient ambulated to bathroom to void. No c/o headache, dizziness or lightheadedness. Standing scale weight 83.9 kg. Back to bed. AM lab work collected and sent. Peripheral IV right arm removed
- Leaking. New Peripheral IV #20P placed left arm. Patient back to sleep. Assessment/Interventions as documented.
--- NOTE | 2023-12-01 08:17 | PTCARENOTE ---
assumed care of pt from previous shift RN, sinus rhythm on tele, + peripheral pulses, no edema noted. Lungs diminished, pox 94% on 2L NC, 88%-90% on RA. Coughing and deep breathing encouraged. +bs, tolerating PO intake, voids spontaneously. Cordis
and pleural CTs removed as ordered. PIV flushes easily. Pt sent for 2view CXR. Plan of care reviewed w the pt and questions encouraged.
[2023-12-01] MEDS: LOPRESSOR 12.5 MG PO (09:27)
[2023-12-01] MEDS: FEOSOL 325 MG PO (09:28)
[2023-12-01] MEDS: LEXAPRO 10 MG PO (09:28)
[2023-12-01] MEDS: NEURONTIN 100 MG PO ×2 (09:28→22:29)
[2023-12-01] MEDS: COZAAR 25 MG PO (09:28)
[2023-12-01] MEDS: LOW STRENGTH ASPIRIN 81 MG PO (09:28)
[2023-12-01] MEDS: SENOKOT-S 1 TABLET PO ×2 (09:28→20:05)
[2023-12-01] MEDS: LIDOCAINE 4% PATCH 1 PATCH TOPICAL (09:28)
[2023-12-01] MEDS: PROTONIX 40 MG PO (09:28)
[2023-12-01] MEDS: PLAVIX 75 MG PO (09:28)
[2023-12-01] MEDS: NSS IV (09:29)
[2023-12-01] MEDS: BACTROBAN 2% OINTMENT 1 APPLIC NASAL ×2 (09:29→20:06)
--- NOTE | 2023-12-01 10:05 | PTCARENOTE ---
ambulated 500ft in the hallway with pt on portable pulse ox, 86-92% on RA.
[2023-12-01] MEDS: TYLENOL PO (14:38)
--- NOTE | 2023-12-01 14:38 | PTCARENOTE ---
pt tolerated shower
[2023-12-01] MEDS: LIPITOR 40 MG PO (18:04)
[2023-12-01] MEDS: NEURONTIN PO (18:04)
[2023-12-01] MEDS: TYLENOL 650 MG PO (18:07)
[2023-12-01] MEDS: LASIX 20 MG IV (20:05)
[2023-12-01] MEDS: TOPROL XL 12.5 MG PO (20:06)
--- NOTE | 2023-12-01 20:30 | PTCARENOTE ---
Patient received OOB in chair watching television. Patient's at bedside. Patient ambulated by self in hallway. No c/o SOB. No MAYA noted. SaO2 87-91% room air. IV Lasix 20mg ordered by PA - Administered without difficulty. Patient voiding
without difficulty. Patient with three chest tube sites - s/p chest tubes - Open to air - No bleeding or oozing noted. No adventitious breath sounds noted. Left lung base diminished. Sinus Rhythm. Heart rate 60-80's. Blood pressure 123/70
(87). Patient with no c/o chest pain, pressure or discomfort. Normoactive bowel sounds. No BM. Positive flatus. No c/o nausea. No vomiting. Positive, palpable pulses. Sternal incision - Surgical adhesive - Intact - Open to air. Patient with
no c/o back or flank pain. No c/o left shoulder pain. Patient to bed. Assessment as documented.
[2023-12-01] MEDS: VENTOLIN NEBULES 2.5 MG INH (20:50)
[2023-12-02] VITALS (8 sets, daily range): BP systolic 116–158; BP diastolic 68–82; PULSE 62–64; O2SAT 90–92; BMI 29.4
--- NOTE | 2023-12-02 | PTCARENOTE ---
Patient sleeping without difficulty. O2 1L via NC HS. SaO2 92%. Patient voiding without difficulty. No further changes from previous assessment.
--- NOTE | 2023-12-02 03:55 | PTCARENOTE ---
Patient A+A+Ox3. No neurological deficits noted. No c/o pain or discomfort. Patient ambulating to bathroom by self to void. AM lab work collected and sent. Standing scale weight 82.6 kg. Patient back to bed. Assessment/Interventions as
documented.
[2023-12-02 03:57] LABS: Hematocrit 39.6 % (39.0-52.0); Hemoglobin 13.1 g/dL (13.0-18.0); Mean Corp Hgb Conc. 33.1 g/dL (33.0-37.0); Mean Corpuscular Hgb 30.3 pg (27.0-31.0); Mean Corpuscular Volume 91.7 fL (80.0-94.0); Mean Platelet Volume 9.1 fL (7.4-10.4); Platelet Count 217 10^3/uL (130-400); Red Blood Cell Count 4.32 10^6/uL (4.70-6.10); Red Cell Dist. Width 12.2 % (11.5-14.5)
--- NOTE | 2023-12-02 04:01 | W.PN.CT ---
Addendum entered and electronically signed by MARGO Cobb 12/04/23 09:23:
CDI inquery:
Post op hypervolemia only
Original Note:
Today's Communication / Plan
-
Plan:
-No major issues overnight. Hemodynamically and neurologically intact
-Noted to have postop MAYA which has improved, no longer requiring supplemental oxygenation
-CXR with small left effusion vs atelectasis, improved today on my review. F/U official report
-Encourage use of IS
-Cont. current meds (ASA, Plavix, Toprol xl, Amio held d/t bradycardia, Lipitor, Protonix, Lexapro)
-No temporary PW
-OOB into chair/Ambulate
-Home today
Assessment / Plan
-
Assessment:
- mv-CAD/NSTEMI (peak trop of 0.709) - s/p off pump Cabg x 2 (Darling-Lad, Marivel 'off Darling'- OM) on 11/28/[address] Willis, pod #4
- Intraop Sabino with preserved EF pre and post revasc, no NWMA
- HTN
- HLD
- Class 1 obesity (BMI 30)
- GERD/Baldwin's
- Depression
- Acute postop blood loss anemia - stable, no transfusion
- Acute postop atelectasis/pleural effusion
- Acute postop hypovolemia with subsequent hypervolemia
- Acute postop pulmonary insufficiency
Discussed patient care with: Cardiology, Nursing, Respiratory Therapy, Pharmacy and Care Team
Subjective
Procedure
- s/p off pump Cabg x 2 (Darling-Lad, Marivel 'off Darling'- OM) on 11/28/[address] Willis
-
Date of Service: December 02, 2023
Pt c/o mild incisional pain, states pleuritic/left shoulder pain has subsided following removal of chest tubes yesterday
Objective Data
-
Lab Results
12/02/23 03:43
PT 15.4 Sec (11.4-14.6) H 11/28/23 10:55
INR 1.21 11/28/23 10:55
APTT 30.5 Sec (23.4-35.0) 11/28/23 10:55
Vital Signs
Vital Signs
Temp Pulse Resp BP Pulse Ox
98.6 F 55 16 141/75 94
12/02/23 03:30 12/02/23 03:30 12/02/23 03:30 12/02/23 03:30 12/02/23 03:30
CT Intake/Output/Weight
12/01/23 12/01/23 12/02/23
06:59 18:59 06:59
Intake Total 600 / 730 10 / 250 240 / 250
Output Total 65 / 105
Balance 535 / 625 10 / 250 240 / 250
SaO2: 92 (RA)
Physical Exam
-
General: Awake, Oriented and AOx3
Cardiovascular: Regular rate & rhythm, No Murmurs, No Rub and No Gallop
Respiratory: Decreased Breath Sounds (at bases > on left, otherwise clear)
Sternum: Stable
Incision: Clean, Dry, Intact and Dressing Intact
Extremities: Other (+trace edema)
Data Reviewed
-
Lab Results: Results Reviewed
Medications: Active Meds Reviewed
Chest X-Ray: Report Reviewed and Image Reviewed
ECG: Report Reviewed and Image Reviewed
[2023-12-02 04:14] LABS: Blood Urea Nitrogen 32 mg/dl (9-20); Calcium 9.1 mg/dl (8.4-10.2); Carbon Dioxide 31 mmol/L (22-30); Chloride 101 mmol/L (98-107); Estimated Creatinine Clearance 51 ml/min; Glucose 104 mg/dl (70-99); Magnesium 2.1 mg/dl (1.6-2.3); Sodium 138 mmol/L (135-145); eGFR > 60.00
[2023-12-02] MEDS: TYLENOL PO (06:16)
--- NOTE | 2023-12-02 07:46 | W.DCSUMMARY ---
Discharge Summary
Discharge Data
Date of Admission: 11/26/23
Date of Discharge: 12/02/23
Total time spent discharging patient (in min): 40
-
Pending Results: No
Hospital Course
Primary care physician:
Dr. Alpesh Sena
Outpatient tumor registrar:
Dr. Remington Bermeo
Inpatient consultants:
DCA, tissue inserter, anesthesia
Procedures:
1. Coronary artery bypass graft x2 the left internal mammary artery to the left anterior descending coronary artery. The right internal mammary artery to the obtuse marginal coronary artery with its proximal on the left internal mammary artery and
Y graft
configuration, without the use of cardiopulmonary bypass procedure.
Primary Diagnosis:
1. Non-ST Elevation Myocardial Infartion
2. Critical Coronary Artery disease
Secondary Diagnoses:
1. hypertension
2. hyperlipidemia
3. Class 1 obesity (BMI 30)
4. Gastrointestinal reflux disease
5. Baldwin's esophagus
6. Depression
7. Acute postop atelectasis/pleural effusion
8. Acute postop hypovolemia with subsequent hypervolemia
9. Acute postop pulmonary insufficiency
HPI: 78-year-old male who was admitted to [facility] on 11/24 for an evaluation of 7 to 10-day history of chest pressure was ruled in for a non-ST elevation myocardial infarction and subsequently transferred to [facility] for a
cardiac catheterization in which two-vessel coronary disease was found. Patient was evaluated by Dr. Willis and taken to the CV OR on 11/27 for coronary artery bypass surgery.
Hospital course: Patient was admitted on 11/24 to [facility] subsequently transferred to [facility] the following day for a left heart cath. Patient was worked up for CT surgery and taken to the CV OR on 11/27. He returned from the
CV OR to the CVICU on Levophed, Precedex, and insulin infusions. Precedex was weaned off and patient was extubated by 1630. On 11/28 postoperative day #1, Levophed was weaned off mediastinal chest tube was removed and pleural chest tube was bulb.
He had episodes of bradycardia overnight so beta-blockers and amiodarone were initially held. Heart rate did improve throughout the day and beta-blockers were resumed. On 11/29 postoperative day #2, patient remained on oxygen despite increase
incentive spirometry efforts and ambulation. On 11/30 postop day #3, remaining chest tubes were removed patient was diuresed with 20 mg of IV Lasix and weaned to room air. On 12/01 postoperative day #4 patient remains off oxygen and Lopressor was
changed to Toprol-XL for better heart rate control. Patient's chest x-ray shows mild improvement. He was deemed stable for discharge and all his prescriptions were sent to his preferred pharmacy.
Home medication changes:
See below
Discharge Plan
-
Patient Disposition: Home (Routine Discharge)
Discharge Diagnosis/Procedures: - Multivessel coronary artery disease/non-ST elevated myocardial infarction (peak troponin of 0.709) -status post off pump coronary artery bypass grafting x 2 (left internal mammary artery to left anterior descending,
right internal mammary artery T graft from left internal mammary artery to obtuse marginal) on 11/28/[address] Willis
-Intraoperative transesophageal echocardiogram with preserved ejection fraction pre and post revascularization, no regional wall motion abnormalities
-Hypertension
-Hyperlipidemia
- Class 1 obesity (body mass index 30)
-Gastroesophageal reflux disease/Baldwin's esophagus
- Depression
- Acute postoperative blood loss anemia - stable, no transfusion
- Acute postoperative atelectasis
- Acute postoperative hypovolemia with subsequent hypervolemia
Condition: Good
Diet: Low Cholesterol, Low Sodium and Restrict fluids to 64 oz
Activity: No strenuous activity
Driving Restrictions: No driving while on narcotics
Bathing Restrictions: OK to Shower
Other Services: Cardiac Rehab
Specialty Instructions: Weigh Daily- Call MD for wt gain/loss 3 lbs overnight/5 lbs in 1 week
Activity Restrictions/Additional Instructions:
ACTIVITY:
-No strenuous activity: no heavy lifting, pushing, pulling anything over 15 pounds for one month
-continue to use stairs as tolerated
WOUND CARE:
-Shower daily. Use soap & water.
-No lotions, creams or powders on incision area.
DIET:
-continue a low fat/low cholesterol diet.
-IF you are diabetic, continue carb controlled diet.
CARDIAC REHAB:
-Please make appointment to start in 5-6 weeks with your local hospital program. (See Cardiac Rehabilitation Discharge Booklet).
SPECIALTY INSTRUCTIONS:
-Weigh yourself daily. Call your physician for any weight gain/loss of 3 lbs overnight or 5 lbs in one week.
-REPORT any clicking noise or uneven appearance of your sternum to your surgeon immediately.
-If you smoke, you are instructed to quit. The [place] smoking hotline phone number is [phone]
Referrals:
CT Transitional Care Nurse [Outside]
(
The Cardiothoracic Transitional Care Nurse will call you to set up a visit in 1-2 days.)
John Willis MD [Active] - 01/06/24 9:30 am
Daryn Diaz MD [Non-Admitting Privileges] - 01/15/24 10:30 am
UNKNOWN,NO INTERVIEW [Family Provider] -
Additional Discharge Medication Instructions: Please note that your losartan dose has changed
Prescriptions:
New
acetaminophen 325 mg Tablet
650 mg PO Q4HPRN PRN (Reason: mild pain,headache,temp >101F ) Qty: 60 0RF
clopidogrel 75 mg Tablet
75 mg PO DAILY 365 Days Qty: 30 2RF
losartan 25 mg Tablet
25 mg PO DAILY Qty: 30 2RF
aspirin 81 mg Tablet,Chewable
81 mg PO DAILY Qty: 60 0RF
oxycodone 5 mg Tablet
5 mg PO Q4HPRN PRN (Reason: moderate pain) Qty: 30 0RF
metoprolol succinate 25 mg Tablet Extended Release 24 Hr
12.5 mg PO DAILY Qty: 60 0RF
Continued
multivitamin Tablet
1 tab PO DAILY
atorvastatin 40 mg Tablet
40 mg PO DAILY
pantoprazole 40 mg Tablet,Delayed Release (Dr/Ec)
40 mg PO DAILY
ferrous sulfate 325 mg (65 mg iron) Tablet
325 mg PO DAILY
calcium carbonate 200 mg calcium (500 mg) Tablet,Chewable
200 mg PO BID PRN (Reason: as needed)
lactase 3,000 unit Tablet
3,000 unit PO ONCE PRN (Reason: as needed)
escitalopram oxalate 10 mg Tablet
10 mg PO DAILY
Discontinued
losartan 100 mg Tablet
100 mg PO DAILY
Discharge Orders:
Discharge Patient (As Directed); Ordered 12/02/23
Ordered By: Mandie Griffin
Care Plan Goals
Care Plan Goals:
Problem: Readiness for enhanced knowledge related to diagnosis and treatment plan
Goal: Understand your diagnosis and treatment plan needs, including medications if applicable.
Instructions: Know your diagnosis, underlying causes and treatment plan options, including medications if applicable. Consult with your health care team to learn about your diagnosis and treatment plan, including medications if applicable.
Discharge Date and Time
Print Language: BENGALI
--- NOTE | 2023-12-02 07:50 | PTCARENOTE ---
Received pt from therapeutic massage technician RN at 0700; AAOx4, [place], and pupils round, reactive, equal; SR w/ SB on monitor and VSS; Left lung base diminished; IS 1000 ml; Pt urinating yellow urine in urinal at bedside; Normoactive BS and pt passing gas ; Sternal
incision glued and approximated - TONO, 3 CT sites CDI; DP and radial pulses present;#[address] left forearm [address]IV in place; See nursing documentation for further details.
[2023-12-02] MEDS: MAGNESIUM OXIDE 500 MG PO (08:12)
[2023-12-02] MEDS: NEURONTIN 100 MG PO (08:12)
[2023-12-02] MEDS: TOPROL XL 12.5 MG PO (08:12)
[2023-12-02] MEDS: SENOKOT-S 1 TABLET PO (08:12)
[2023-12-02] MEDS: COZAAR 25 MG PO (08:12)
[2023-12-02] MEDS: LEXAPRO 10 MG PO (08:12)
[2023-12-02] MEDS: PROTONIX 40 MG PO (08:12)
[2023-12-02] MEDS: MILK OF MAGNESIA 30 ML PO (08:12)
[2023-12-02] MEDS: LOW STRENGTH ASPIRIN 81 MG PO (08:12)
[2023-12-02] MEDS: PLAVIX 75 MG PO (08:12)
[2023-12-02] MEDS: FEOSOL 325 MG PO (08:12)
[2023-12-02] MEDS: LIDOCAINE 4% PATCH TOPICAL (08:13)
[2023-12-02] MEDS: BACTROBAN 2% OINTMENT 1 APPLIC NASAL (08:13)
[2023-12-02] MEDS: NSS IV (08:29)
--- NOTE | 2023-12-02 11:24 | PN.CDI ---
CDI
- -
CDI:
Physician Documentation Request
Admit Date: 11/26/23 12:39
Dear Doctor Alba/KIRILL,
Please review the following and provide your response in the progress notes.
Clinical Indicators:
Pt admitted with NSTEMI/ CAD unstable angina s/p CABG 11/27
Documented per Progress notes 11/27 -12/01, ' - Acute postop hypovolemia with subsequent hypervolemia...'
CXR 12/01, ' Mild pulmonary vascular congestion.'
Progress note 12/01, ' Respiratory: Decreased Breath Sounds (at bases > on left...Extremities: Other (+trace edema)...'
EMILE 11/27,' stage I diastolic dysfunction.... EF 55 to 60%..'
Per MAR did Get IV lasix 20 mg 11/30 and 20 mg IV lasix 12/01
Please provide a diagnosis for the above findings and treatment of IV Lasix:
Acute Diastolic CHF
Post op hypervolemia only
Other ( please specify)
Use of terms such as suspected, likely, concern for, or probable (associated with a specific diagnosis that is being evaluated, monitored, or treated as if it exists) are acceptable and can be coded in the inpatient setting, when documented at the
time of discharge.
Thank you,
Cristina Brewster RN
CDI Specialist
[employer]
Please use your independent medical judgment in providing your response.
--- NOTE | 2023-12-02 11:31 | W.PN.CARDCBS ---
Today's Communication / Plan
-
Stable for d/c from cardiac standpoint
Impression / Plan
-
Primary care physician: Alpesh Sam DO
Primary ground support equipment fitter: Parrish Diaz MD of [facility]
Impression:
unstable angina/NSTEMI, peak trop 0.7
s/p Cath with severe two-vessel CAD in LAD and circumflex with significant left main 11/26/23
s/p CABG x2 KATHLEEN to LAD, DALE to OM, off pump 11/28/23
CM secondary to above.
HTN
Hyperlipidemia
GERD/hiatal hernia
Cataracts
Depression
ECHO 11/26/23: EF 45 to 50%, mild concentric LVH, hypokinesis of mid to apical anterolateral, inferolateral, inferoseptal, anteroseptal, apical, mitral sclerosis, mild MR, PAP 35 to 40 mmHg
Plan:
Non-STEMI who presented to [facility] on transfer to [facility] for cardiac catheterization 11/26/2023 found to have multivessel coronary artery disease including left main disease
Stable status post CABG x2 KATHLEEN to LAD, DALE to OM, off pump 11/28/23
Cont DAPT
outpt follow up arranged.
Eventual reeval echo as outpt
Recheck lipids as outpt
Cardiac rehab as outpt.
Discussed with family at bedside.
PREADMIT DATA:
78-year-old man with history of hypertension, hyperlipidemia, hiatal hernia, GERD, who presented to the ED with approximately 10 days of progressively worsening chest tightness.
Chest pain description was fairly atypical since it was non-exertional and worse with laying flat. However EKG showed new lateral T wave inversions compared to old prior EKG. Troponin on arrival was minimally elevated to 63, however overnight
progressively drew to 149. EKG this AM showed dynamic changes with deeper lateral T wave inversions and prolonged QTc. He is transferred today for [facility].
Progress Note - Wash Helper
Subjective
Date of Service: December 02, 2023
Pt seen and examined. No complaints. No chest pain or shortness of breath.
Objective
Labs:
12/02/23 03:43
12/02/23 03:43
Labs
Hgb 13.1 g/dL (13.0-18.0) 12/02/23 03:43
Hct 39.6 % (39.0-52.0) 12/02/23 03:43
Plt Count 217 10^3/uL (130-400) 12/02/23 03:43
PT 15.4 Sec (11.4-14.6) H 11/28/23 10:55
INR 1.21 11/28/23 10:55
APTT 30.5 Sec (23.4-35.0) 11/28/23 10:55
Sodium 138 mmol/L (135-145) 12/02/23 03:43
Potassium 4.0 mmol/L (3.5-5.1) 12/02/23 03:43
BUN 32 mg/dl (9-20) H 12/02/23 03:43
Creatinine 1.1 mg/dL (0.7-1.3) 12/02/23 03:43
Glucose 104 mg/dl (70-99) H 12/02/23 03:43
Vital Signs and I&O:
Vital Signs
Temp Pulse Resp BP Pulse Ox
97.8 F 66 18 158/75 90
12/02/23 11:15 12/02/23 11:03 12/02/23 11:15 12/02/23 11:03 12/02/23 11:15
Vital Signs
Temp Pulse Resp BP Pulse Ox
97.8 F 66 18 158/75 90
12/02/23 11:15 12/02/23 11:03 12/02/23 11:15 12/02/23 11:03 12/02/23 11:15
Intake & Output
08/17/12/01/23 12/02/23 12/03/23
06:59 06:59 06:59 06:59
Intake Total 923.9 / 923.9 730 / 730 250 / 250 240 / 240
Output Total 275 / 275 105 / 105
Balance 648.9 / 648.9 625 / 625 250 / 250 240 / 240
Physical Exam
Physical Exam
General: No acute distress, AAOX3
Neck: Negative JVD
Heart: Regular, Negative S3 positive S1/S2, Negative S4, No murmur
Lungs: CTA b/l, negative wheezes/rales/rhonchi
Abd: Positive BS, NT/ND, neg rebound/rigidity/guarding
Ext: Negative cyanosis/clubbing/edema
Neuro: nonfocal
[2023-12-02] MEDS: LASIX 20 MG IV (12:01)
[2023-12-02] MEDS: KCL 20 MEQ PO (12:02)
--- NOTE | 2023-12-02 12:47 | PTCARENOTE ---
youth nutritional monitor removed, IV removed and pt dressed self; discharge instructions gone over with pt and at bedside; all questions answered; pt discharged by volunteer wheelchair.
== END 2023-12-02 13:04 | disposition home or self-care (01) | DRG 233 ==
LOC: CVICU 12:39
PROVIDERS: Anesthesiology; Internal Medicine Interventional Cardiology; Nurse Practitioner; Nurse Practitioner Adult Health; Physician Assistant; Physician Assistant Medical; ADMITTING PHYSICIAN Internal Medicine Interventional Cardiology; ATTENDING PHYSICIAN Thoracic Surgery (Cardiothoracic Vascular Surgery); CONSULT PHYSICIAN Internal Medicine; FAMILY PHYSICIAN Family Medicine
PROC: 4A023N7 Measurement of Cardiac Sampling and Pressure, Left Heart, Percutaneous Approach (ICD-10-PCS; 2023-11-26)
PROC: B2151ZZ Fluoroscopy of Left Heart using Low Osmolar Contrast (ICD-10-PCS; 2023-11-26)
PROC: B2111ZZ Fluoroscopy of Multiple Coronary Arteries using Low Osmolar Contrast (ICD-10-PCS; 2023-11-26)
PROC: 02100Z8 Bypass Coronary Artery, One Artery from Right Internal Mammary, Open Approach (ICD-10-PCS; 2023-11-28)
PROC: 02100Z9 Bypass Coronary Artery, One Artery from Left Internal Mammary, Open Approach (ICD-10-PCS; 2023-11-28)
PROC: B24BZZ4 Ultrasonography of Heart with Aorta, Transesophageal (ICD-10-PCS; 2023-11-28)
DX: I21.4 Non-ST elevation (NSTEMI) myocardial infarction (principal); J95.1 Acute pulmonary insufficiency following thoracic surgery; D62 Acute posthemorrhagic anemia; J90 Pleural effusion, not elsewhere classified; J98.11 Atelectasis; I25.10 Atherosclerotic heart disease of native coronary artery without angina pectoris; I10 Essential (primary) hypertension; E78.2 Mixed hyperlipidemia; K21.9 Gastro-esophageal reflux disease without esophagitis; F32.A Depression, unspecified; K44.9 Diaphragmatic hernia without obstruction or gangrene; E66.9 Obesity, unspecified; K22.70 Barrett's esophagus without dysplasia; E86.1 Hypovolemia; E87.70 Fluid overload, unspecified; Y83.2 Surgical operation with anastomosis, bypass or graft as the cause of abnormal reaction of the patient, or of later complication, without mention of misadventure at the time of the procedure; Z68.30 Body mass index [BMI] 30.0-30.9, adult; Z79.899 Other long term (current) drug therapy; Z87.891 Personal history of nicotine dependence
CPT/HCPCS: 71045; 71046; 80048; 80053; 80061; 81003; 81015; 82248; 82330; 82565; 82805; 82947; 82962; 83036; 83735; 84132; 84302; 84484; 84520; 85014; 85018; 85027; 85049; 85610; 85730; 86850; 86900; 86901; 86920; 87070; 93005; 93306; 93312; 93320; 93325; 93458; 93880; 94640; C1894; P9045; Q9967